=== PATIENT | male | born 1960 | race Caucasian/White ===

== ENCOUNTER 2020-09-23 09:14 | Emergency (ER) | payer BC, SELFPAY ==
--- NOTE | ~2020-09-23 | CT_ITS ---
EXAMINATION: CT abdomen pelvis w con EXAM DATE: 09/23/2020 11:44 INDICATION: Abdominal pain. Diverticulitis. TECHNIQUE: Spiral CT of the abdomen and pelvis was performed following intravenous injection of 100 m L Omnipaque 350. Axial, coronal and sagittal images of the abdomen and pelvis were reviewed. The do se-length product (DLP) for this examination was 624.41 mGy-cm. The exposure was tailored according to patient size (auto mA exposure control), and iterative reconstruction (ASIR) was used as additiona l dose reduction technique. Comparison is made to prior examination from 11/02/2017. FINDINGS: There is mild colonic diverticulosis. There is moderate amount of inflammation along the de scending/sigmoid colonic junction, with a 2 cm adjacent pocket of fluid which appears contained but w ithout organized wall (could be reactive rather than abscess). This is just deep to the inguinal adrienne l, with a small fat-containing inguinal hernia and inflammation extending into the canal. Portion of fat extending into inguinal canal appears circumscribed. Differential diagnosis includes torsed or he rniated epiploic appendagitis (into the inguinal canal), acute diverticulitis. The liver, spleen, adrenal glands and pancreas are unremarkable. Gallbladder is unremarkable. No bi liary obstruction. Portal and splenic veins are patent. Kidneys enhance symmetrically. There is no hydronephrosis. Prostate measures 5.5 cm transverse dimension, moderately enlarged. The bladder i s unremarkable. There is no retroperitoneal or pelvic lymphadenopathy. Moderate-sized umbilical fa t-containing hernia. The appendix is normal. The stomach and small bowel are unremarkable. There is expected amount of c olonic stool. No free intraperitoneal gas. The heart is normal in size. There are no pericardial or pleural effusions. The lung bases are unremarkable. Left femoral head bone island. IMPRESSION: 1. Inflammation along the descending/sigmoid colon with small pocket of fluid, small inguinal hernia containing circumscribed fat, inflammation. Consider herniated/torsed epiploic appendagitis, acute di verticulitis. Fluid pocket could be reactive but can't exclude early abscess. 2. Moderate-sized umbilical fat-containing hernia. 3. Moderate prostatomegaly. Reviewed, dictated and finalized at location [facility]. IMPRESSION: 1. Inflammation along the descending/sigmoid colon with small pocket of fluid, small inguinal hernia containing circumscribed fat, inflammation. Consider oleg iated/torsed epiploic appendagitis, acute diverticulitis. Fluid pocket could be reactive but can't exclude early abscess. 2. Moderate-sized umbilical fat-containing hernia. 3. Moderate prostatomegaly.
[2020-09-23 09:30] VITALS: BP 140/85; PULSE 99; RESP 18; TEMP 36.5; O2SAT 97
[2020-09-23 10:06] LABS: Basophils Absolute Auto 0.05 K/mm3 (0.00-0.10); Basophils Percent Auto 0.7 % (0.0-1.0); Eosinophils Percent Auto 2.6 % (1.0-6.0); Hematocrit 41.8 % (40.0-54.0); Hemoglobin 14.1 g/dL (14.0-18.0); Immature Granulocyte Absolute 0.05 K/mm3 (0.00-0.00); Immature Granulocyte Percent A 0.7 % (0.0-0.0); Lymphocytes Absolute Auto 1.81 K/mm3 (1.10-4.50); Lymphocytes Percent Auto 23.6 % (18.0-42.0); Mean Corpuscular HGB Conc 33.7 g/dL (32.0-36.0); Mean Corpuscular Hemoglobin 28.5 pg (27.0-31.0); Mean Corpuscular Volume 84.4 fL (78.0-102.0); Mean Platelet Volume 10.2 fl (8.7-11.0); Monocytes Absolute Auto 0.69 K/mm3 (0.10-0.90); Neutrophils Absolute Auto 4.9 K/mm3 (1.7-7.2); Neutrophils Percent Auto 63.4 % (50.0-70.0); Platelet Count Result 342 K/mm3 (150-420); Red Blood Count 4.95 M/mm3 (4.70-6.10); Red Cell Distribution Width 12.5 % (11.6-14.4); White Blood Count 7.7 K/mm3 (4.8-10.8)
[2020-09-23 10:07] LABS: Add Urine Microscopic? YES; Appearance Urine Clear (Clear); Bilirubin Urine Negative (Negative); Blood Urine Negative (Negative); Color Urine Yellow (Yellow); Glucose Urine UA 1+ (Negative); Ketones Urine Negative (Negative); Leukocyte Esterase Ur Negative LEU/UL (Negative); Nitrate Urine Negative (Negative); Protein Urine Negative (Negative); Specific Grav Ur 1.015 (1.010-1.020); Urobilinogen Urine 0.2 mg/dL (0.2-1.0); pH Urine 6.5 (5.0-8.0)
[2020-09-23 10:14] LABS: Bacteria Urine Trace /hpf; RBC Urine None seen /hpf (0-2); Squamous Epithelial Cell Urine Few /hpf (Few); WBC Urine None seen /hpf (0-3)
[2020-09-23 10:18] LABS: Alanine Aminotransferase 71 U/L (16-63); Albumin Level 3.4 g/dL (3.4-5.0); Alkaline Phosphatase 148 U/L (46-116); Anion Gap 9 mmol/L (8-16); Aspartate Amino Transferase 26 U/L (15-37); Bilirubin,Total 0.8 mg/dL (0.00-1.00); Blood Urea Nitrogen 14 mg/dL (7-18); Calcium 8.4 mg/dL (8.5-10.1); Carbon Dioxide 27 mmol/L (21-32); Chloride 101 mmol/L (98-108); Estimated CRCL calculation 58 ml/min; Estimated Glomerular Filt Rate 60; Glucose 265 mg/dL (70-99); Lipase 90 U/L (73-393); Osmolality Calculated 293 mOsm/kg (285-295); Potassium 3.9 mmol/L (3.5-5.1); Sodium 137 mmol/L (136-145); Total Protein 6.7 g/dL (6.4-8.2)
[2020-09-23] MEDS: KETOROLAC 30 MG/ML VIAL (*BKC) IV PUSH (10:21)
[2020-09-23 10:24] LABS: Lactic Acid Reflex 1.5 mmol/L (0.4-2.0)
[2020-09-23 13:06] VITALS: BP 127/65; PULSE 75; RESP 16; O2SAT 99
[2020-09-23] MEDS: metroNIDAZOLE 500 MG/ISO 100ML 500 MG/100 ML BAG 100 MG IVPB (14:08)
--- NOTE | 2020-09-23 14:17 | PC.NURSE ---
[facility] CONTACTED FOR TRANSFER.
--- NOTE | 2020-09-23 15:00 | ED.ABDPAIN ---
HPI - Abdominal Pain General Chief Complaint: Abdominal Pain Stated Complaint: abdomen pain Time Seen by Provider: 09/23/20 09:40 Source: patient and family Mode of arrival: ambulatory Limitations: no limitations History of Present Illness HPI narrative: Patient comes in with LLQ abdominal pain and pain over bladder, moderately severe, ongoing, sharp pain, ongoing for the past 4 days and ongoing. He has had no fever or chills. Pain has been worse with bending or walking. This has not improved at home with NSAIDS. MD elicited complaint: abdominal pain Pertinent past history: other (umbilical hernia) Onset (ago): day(s) Pain Consistency: constant Location: diffuse Severity: moderate Quality: stabbing Radiation: LUQ and LLQ Migration to: no migration Exacerbating factors: movement Relieving factors: rest Associated symptoms: denies other symptoms Treatments prior to arrival: NSAIDs Related Data Home Medications Medication Instructions Recorded Confirmed amlodipine 5 mg PO HS 09/23/20 09/23/20 atorvastatin 40 mg PO HS 09/23/20 09/23/20 Allergies Allergy/AdvReac Type Severity Reaction Status Date / Time No Known Allergies Allergy Verified 09/23/20 09:29 Review of Systems Constitutional: Constitutional: Reports no additional constitutional complaints Eyes: Eyes: Reports no additional eye complaints ENT: Reports system reviewed and no additional complaints, except as documented Cardiovascular: Cardiovascular: Reports no additional cardiovascular complaints Respiratory: Respiratory: Reports no additional respiratory complaints Gastrointestinal: Gastrointestinal: Reports abdominal pain and Reports nausea Genitourinary: Genitourinary: Reports no additional male genitourinary complaints Musculoskeletal: Musculoskeletal: Reports no additional musculoskeletal complaints Integumentary/Breasts: Skin/Breast: Reports system reviewed and no additional complaints, except as docu Neurologic: Reports system reviewed and no additional complaints, except as documented Psychiatric: Psychiatric: Reports no additional psychiatric complaints Endocrine: Endocrine: Reports no additional endocrine complaints Hematologic/Lymphatic: Hematologic/Lymphatic: Reports no additional hematologic/lymphatic complaints Allergic/Immunologic: Allergic/Immunologic: Reports no additional allergic/immunologic complaints [facility] Past Medical History Medical History Enlarged prostate HTN (hypertension), malignant Umbilical hernia Surgical History Surgical History H/O parathyroidectomy Family History Family History Father Diabetes mellitus Mother Cancer Other Family history of arthritis Family history of hepatitis Family history of liver disease Family history of primary malignant neoplasm of liver Social History Social History Social History: The patient was with his who is a durable power assistant attorney general for healthcare. The patient has 3 step children. He has no biological children of his own. The patient works for the [employer]. The patient is a full code. Patient's lifelong nonsmoker. Does not use any marijuana illicit drugs or alcohol Smoking status: Never smoker Alcohol intake: never Substance use: never Substance use type: does not use Gender identity (if verbalized by the patient): Male Spiritual care concerns: No Exam Const: General: no acute distress and alert Orientation/consciousness: patient oriented x3 HENMT: Head: normal to inspection Ears: external ears normal and TM's normal bilaterally General nose exam: Normal external nose present Mouth: Yes Normal oral and palatal mucosa present Throat: posterior oropharynx normal Eyes: Conjunctivae: conjunctivae normal Nec
--- NOTE | 2020-09-23 15:23 | PC.NURSE ---
awaiting surgeon from [place] to call back for consult. pt resting comfortably at this time, spouse at bedside.
[2020-09-23 15:43] VITALS: BP 132/90; PULSE 77; RESP 16; O2SAT 99
--- NOTE | 2020-09-23 16:18 | PC.NURSE ---
pt to be transferred to [facility] room 314 via ambulance. Report to Nany CHUA at [place].
== END 2020-09-23 16:40 | disposition short-term general hospital (02) ==
LOC: CHSED 09:17
PROVIDERS: Emergency Provider Emergency Medicine; PCP Family Medicine Adolescent Medicine
DX: K57.92 Diverticulitis of intestine, part unspecified, without perforation or abscess without bleeding (principal)
CPT/HCPCS: 36415; 74177; 80053; 81001; 83605; 83690; 85025; 87040; 96365; 96367; 96375; 99285; J1885; J2543; Q9967

== ENCOUNTER 2020-09-23 18:41 | Inpatient (IN) | payer BC, SELFPAY ==
--- NOTE | 2020-09-23 17:25 | PC.NURSE ---
This patient, Waqar Hernandez, was admitted to [facility] Surg Room 314-01. Patient/family oriented to hospital policies and general routines including ID bracelet, bed and alarms, visiting hours, pain management, procedures, bathroom and other care routines, personal items, smoking policy, room service/diet, and visiting hours. Information on how to activate the Rapid Response Team has been discussed. Patient/Family are encouraged to report perceived risks to care and to ask questions if they do not understand what they are told or what they should do.
[2020-09-23 17:29] VITALS: BMI 29.2
[2020-09-23 17:30] VITALS: BP 134/81; PULSE 79; RESP 18; TEMP 36.6; O2SAT 98
--- NOTE | 2020-09-23 18:41 | PM.IMHP ---
H&P: HPI History of Present Illness Date/Time: 09/23/20 18:41 this is a 60-year-old male patient with the only medical problems of hyperlipidemia and hypertension. He is not had any prior history of diverticulosis. The patient stated that he felt a discomfort in his lower abdomen approximately 3 days ago. He has been lifting weights in his basement and thought that maybe he pulled a muscle. The patient does have a umbilical hernia which he states has been there for about the last 3 years. Is been soft and has not had any problems with the umbilical hernia in the past. The patient stated that he is having left lower quadrant discomfort more so with walking and bending over. The patient was not able to go to [facility] today because of the discomfort. He denied any nausea vomiting or diarrhea. He denies having any bowel issues at this time. Patient stated he had problems with constipation the past but not recently. He has had no fever or chills. He did try some NSAIDs at home without any relief. The patient went to [facility] in saw Dr. gonzalez in the ER. Was read as. 1. Inflammation along the descending/sigmoid colon with small pocket of fluid, small inguinal hernia containing circumscribed fat, inflammation. Consider herniated/torsed epiploic appendagitis, acute diverticulitis. Fluid pocket could be reactive but can't exclude early abscess. 2. Moderate-sized umbilical fat-containing hernia. 3. Moderate prostatomegaly. The patient was started on Zosyn and Flagyl. The patient was noted to have an umbilical hernia which was not reducible. Patient has left lower quadrant tenderness. The patient is being admitted to inpatient services on the date of service of 09/23/2020. Chief Complaint: Abdominal pain Review of Systems Review of Systems: All systems reviewed & are unremarkable except as noted in HPI and below Constitutional: Constitutional: Reports as per HPI and Reports no additional constitutional complaints Eyes: Eyes: Reports as per HPI and Reports no additional eye complaints ENT: Reports system reviewed and no additional complaints, except as documented and Reports Normal hearing present Cardiovascular: Cardiovascular: Reports no additional cardiovascular complaints Respiratory: Respiratory: Reports no additional respiratory complaints and Reports no additional respiratory complaints Gastrointestinal: Gastrointestinal: Reports as per HPI and Reports no additional gastrointestinal complaints Musculoskeletal: Musculoskeletal: Reports no additional musculoskeletal complaints Integumentary/Breasts: Skin/Breast: Reports system reviewed and no additional complaints, except as docu and Reports as per HPI Neurologic: Reports system reviewed and no additional complaints, except as documented, Reports as per HPI and Reports Normal hearing present Psychiatric: Psychiatric: Reports no additional psychiatric complaints and Reports as per HPI Endocrine: Endocrine: Reports no additional endocrine complaints Hematologic/Lymphatic: Hematologic/Lymphatic: Reports no additional hematologic/lymphatic complaints Allergic/Immunologic: Allergic/Immunologic: Reports no additional allergic/immunologic complaints PMF[facility] Past Medical History Medical History (Updated 09/23/20 @ 19:17 by Zainab Brito NP) Enlarged prostate HTN (hypertension), malignant Umbilical hernia Surgical History Surgical History (Updated 09/23/20 @ 19:02 by Zainab Brito NP) H/O parathyroidectomy Family History Family History (Updated 09/23/20 @ 19:03 by Zainab Brito NP) Father Diabetes mellitus Mother Cancer Other Family history of arthritis Family history of hepatitis Family history of liver disease Family history of primary malignant neoplasm of liver Social History Social History (Updated 09/23/20 @ 19:03 by Zainab Brito NP) Social History: The patient was with his who is a durable power senior software qa engineer for healthcare. The [employer]
[2020-09-23 20:00] VITALS: BP 129/79; PULSE 74; RESP 20; TEMP 36.3; O2SAT 99
[2020-09-23] MEDS: DEXTROSE 5%/0.45% SOD CHL 1,000 ML 100 ML IV CONT (20:19)
[2020-09-23 20:24] LABS: Estimated CRCL calculation 64 ml/min; Estimated Glomerular Filt Rate > 60
[2020-09-23 20:25] LABS: Lactic Acid Reflex 1.4 mmol/L (0.7-2.1); Magnesium 1.9 mg/dL (1.6-2.3)
[2020-09-23] MEDS: amLODIPine BESYLATE 5 MG TABLET PO (20:29)
[2020-09-23] MEDS: ATORVASTATIN 40 MG TABLET PO (20:29)
[2020-09-24] VITALS: BP 130/72; PULSE 70; RESP 18; TEMP 36.7; O2SAT 97
[2020-09-24 04:00] VITALS: BP 136/61; PULSE 66; RESP 18; TEMP 36.6; O2SAT 97
[2020-09-24 06:27] LABS: Basophils Absolute Auto 0.1 K/mm3 (0.0-0.1); Basophils Percent Auto 0.9 % (0.2-1.2); Eosinophils Absolute Auto 0.3 K/mm3 (0-0.3); Eosinophils Percent Auto 4.3 % (0-4.4); Hematocrit 40.7 % (42.0-52.0); Hemoglobin 13.8 g/dL (14.0-18.0); Immature Granulocyte Absolute 0.04 K/mm3 (0.00-0.031); Immature Granulocyte Percent A 0.5 % (0-0.5); Lymphocytes Absolute Auto 1.94 K/mm3 (0.9-3.2); Lymphocytes Percent Auto 25.4 % (18.3-44.2); Mean Corpuscular HGB Conc 33.9 g/dl (32-36); Mean Corpuscular Volume 82.7 fl (80-100); Mean Platelet Volume 10.2 fl (7.4-10.4); Monocytes Absolute Auto 0.9 K/mm3 (0.1-0.6); Monocytes Percent Auto 12.2 % (2.6-8.5); Neutrophils Absolute Auto 4.3 K/mm3 (1.3-6.7); Neutrophils Percent Auto 56.7 % (45.5-73.1); Platelet Count Result 333 k/mm3 (150-375); Red Blood Count 4.92 M/mm3 (4.6-6.20); Red Cell Distribution Width 12.5 % (11.5-14.5); White Blood Count 7.6 K/mm3 (4.5-10.0)
[2020-09-24 07:59] VITALS: BP 134/81; PULSE 79; RESP 16; TEMP 36.6; O2SAT 95
[2020-09-24] MEDS: DEXTROSE 5%/0.45% SOD CHL 1,000 ML 100 ML IV CONT ×2 (09:08→19:02)
--- NOTE | 2020-09-24 10:42 | PM.CNGS ---
Assessment and Plan Assessment and plan (1) Diverticulitis: Code(s): K57.92 - Diverticulitis of intestine, part unspecified, without perforation or abscess without bleeding Status: Acute Assessment and Plan: This is the reason for his admission. CT scan reviewed and discussed with the patient in detail. There is evidence of acute diverticulitis with a small, 2 cm pocket of fluid adjacent to this. No free intraperitoneal air. The patient is already showing signs of clinical improvement with IV antibiotics and his white blood cell count remains normal. We would recommend continuing with broad-spectrum IV antibiotics, bowel rest, analgesics as needed, and IV fluids. Would agree with clear liquid diet for now. No indication for surgical intervention at this time. I discussed with the patient the pathophysiology of this disease process and that typically this improves with antibiotics and conservative measures. This is his first episode of diverticulitis. If he continues to improve, he would ultimately be discharged with a course of oral antibiotics and educated on a low vs. high fiber diet. He will also need a colonoscopy in about 4-6 weeks once this acute process has resolved. (2) Umbilical hernia: Code(s): K42.9 - Umbilical hernia without obstruction or gangrene Status: Chronic Assessment and Plan: Umbilical hernia containing fat noted on CT scan. Not able to fully reduce on exam and slightly tender, but otherwise this is typically asymptomatic. This is a chronic issue and there is no indication for urgent repair. Discussed this with the patient and reasons to seek urgent medical attention. Could follow-up as an outpatient either with our service or at the [place] for elective repair as an outpatient. (3) Left inguinal hernia: Code(s): K40.90 - Unilateral inguinal hernia, without obstruction or gangrene, not specified as recurrent Status: Acute Assessment and Plan: Small left inguinal hernia containing fat. CT suggests epiploic appendagitis as a differential dx. Continue analgesics as needed and monitoring. Will continue to treat the acute diverticulitis as mentioned above. (4) HTN (hypertension), malignant: Code(s): I10 - Essential (primary) hypertension Status: Chronic (5) Enlarged prostate: Code(s): N40.0 - Benign prostatic hyperplasia without lower urinary tract symptoms Status: Chronic Assessment and Plan: Takes an OTC supplement. Reportedly has this followed at the [facility] per Hospitalist. Additional Plan I have discussed the patient's case and plan of care with Dr. Short. Thank you for allowing us to see the patient in consultation and we will continue to follow along with you. History of Present Illness Consult details Consult date: 09/24/20 Reason for consult: other (Acute diverticulitis with possible abscess) Requesting physician: Zainab Brito NP Narrative: This is a 60-year-old male with a history of hypertension and hyperlipidemia, who presented to [facility] yesterday with complaints of lower abdominal pain. He reports first noticing very mild lower abdominal pain 5 days ago. He initially thought this was related to a muscle strain after lifting weights. His abdominal pain remained mild for a few days, but then progressively worsened over the weekend. He was eating and moving his bowels normally without complaints of nausea, vomiting, or diarrhea. He denies any blood noted in his stools. The abdominal pain became more severe yesterday and was constant, therefore he presented to the [place] ER for evaluation. CT scan of the abdomen and pelvis showed inflammation of the descending and sigmoid colon with a small 2 cm pocket of fluid, a small inguinal hernia containing circumscribed fat with inflammation, a moderate sized umbilical fat containing hernia, and moderate prostatomegaly. Labs were unremarkable with a normal white blood cell count. Our serv
[2020-09-24 12:00] VITALS: BP 127/77; PULSE 80; RESP 16; TEMP 36.9; O2SAT 98
--- NOTE | 2020-09-24 14:21 | PM.IMPN ---
Progress Note: A&P Assessment and Plan (1) Diverticulitis: Code(s): K57.92 - Diverticulitis of intestine, part unspecified, without perforation or abscess without bleeding Status: Acute Assessment and Plan: Continue with Zosyn. Continue with IV fluids and anti nausea medicine. Continue with pain medication general surgery consulted. CT abdomen with: 1. Inflammation along the descending/sigmoid colon with small pocket of fluid, small inguinal hernia containing circumscribed fat, inflammation. Consider herniated/torsed epiploic appendagitis, acute diverticulitis. Fluid pocket could be reactive but can't exclude early abscess. 2. Moderate-sized umbilical fat-containing hernia. 3. Moderate prostatomegaly. needs to see GI or colorectal for colonscopy in 4-6 weeks of resolution of his diverticulitis. (2) Umbilical hernia: Code(s): K42.9 - Umbilical hernia without obstruction or gangrene Status: Chronic Assessment and Plan: with fat in the hernia sac. not able to reduce and slightly tender, which he states has been that way. no indication for ugent repair per surgery. (3) HTN (hypertension), malignant: Code(s): I10 - Essential (primary) hypertension Status: Chronic Assessment and Plan: Continue with patient's amiodarone. (4) Enlarged prostate: Code(s): N40.0 - Benign prostatic hyperplasia without lower urinary tract symptoms Status: Chronic Assessment and Plan: Patient takes [facility] at home. The patient typically goes to the [place] it is going to address this issue with his doctor at the [place]. (5) Hyperlipidemia: Code(s): E78.5 - Hyperlipidemia, unspecified Status: Acute Assessment and Plan: Continue with atorvastatin. Subjective Date/time seen: 09/24/20 14:21 Interval history: patient feelig better. abdomen is less sore. tried clears and tolerating it well. no fever,chlls. no sob, chest pain. have normal bowel movements Review of Systems Review of Systems: All systems reviewed & are unremarkable except as noted in HPI and below Constitutional: Constitutional: Reports as per HPI and Reports no additional constitutional complaints Eyes: Eyes: Reports as per HPI and Reports no additional eye complaints ENT: Reports system reviewed and no additional complaints, except as documented and Reports Normal hearing present Cardiovascular: Cardiovascular: Reports no additional cardiovascular complaints Respiratory: Respiratory: Reports no additional respiratory complaints and Reports no additional respiratory complaints Gastrointestinal: Gastrointestinal: Reports as per HPI and Reports no additional gastrointestinal complaints Musculoskeletal: Musculoskeletal: Reports no additional musculoskeletal complaints Integumentary/Breasts: Skin/Breast: Reports system reviewed and no additional complaints, except as docu and Reports as per HPI Neurologic: Reports system reviewed and no additional complaints, except as documented, Reports as per HPI and Reports Normal hearing present Psychiatric: Psychiatric: Reports no additional psychiatric complaints and Reports as per HPI Endocrine: Endocrine: Reports no additional endocrine complaints Hematologic/Lymphatic: Hematologic/Lymphatic: Reports no additional hematologic/lymphatic complaints Allergic/Immunologic: Allergic/Immunologic: Reports no additional allergic/immunologic complaints Exam Const: General: cooperative, healthy appearing, comfortable, no acute distress, well developed, alert, awake and Physically active Nutritional Appearance: average body habitus and well nourished Orientation/consciousness: oriented to person, oriented to place, oriented to time and patient oriented x3 Limitations: no limitations HENMT: Head: normal to inspection, No palpable skull fracture present, normocephalic and atraumatic Ears: hearing grossly normal bilater
[2020-09-24 14:54] LABS: Anion Gap 9 mmol/L (8-16); Blood Urea Nitrogen 10 mg/dL (9-20); Carbon Dioxide 29 mmol/L (22-30); Chloride 102 mmol/L (98-107); Estimated CRCL calculation 59 ml/min; Estimated Glomerular Filt Rate > 60; Glucose 171 mg/dL (75-110); Potassium 3.9 mmol/L (3.4-5.0); Sodium 140 mmol/L (137-145)
[2020-09-24 16:00] VITALS: BP 128/80; PULSE 75; RESP 14; TEMP 36.2; O2SAT 99
[2020-09-24 20:00] VITALS: BP 125/81; PULSE 65; RESP 18; TEMP 36.6; O2SAT 100
[2020-09-24] MEDS: amLODIPine BESYLATE 5 MG TABLET PO (21:55)
[2020-09-24] MEDS: ATORVASTATIN 40 MG TABLET PO (21:55)
[2020-09-25] VITALS: BP 101/58; PULSE 72; RESP 18; TEMP 36.6; O2SAT 99
[2020-09-25 04:00] VITALS: BP 116/62; PULSE 72; RESP 18; TEMP 36.1; O2SAT 97
[2020-09-25] MEDS: DEXTROSE 5%/0.45% SOD CHL 1,000 ML 100 ML IV CONT (05:11)
[2020-09-25 06:06] LABS: Basophils Absolute Auto 0.1 K/mm3 (0.0-0.1); Basophils Percent Auto 0.9 % (0.2-1.2); Eosinophils Absolute Auto 0.3 K/mm3 (0-0.3); Eosinophils Percent Auto 4.2 % (0-4.4); Hematocrit 42.5 % (42.0-52.0); Immature Granulocyte Absolute 0.04 K/mm3 (0.00-0.031); Immature Granulocyte Percent A 0.5 % (0-0.5); Lymphocytes Absolute Auto 1.95 K/mm3 (0.9-3.2); Lymphocytes Percent Auto 24.9 % (18.3-44.2); Mean Corpuscular HGB Conc 32.9 g/dl (32-36); Mean Corpuscular Hemoglobin 28.2 pg (26-34); Mean Corpuscular Volume 85.5 fl (80-100); Mean Platelet Volume 9.6 fl (7.4-10.4); Monocytes Absolute Auto 0.9 K/mm3 (0.1-0.6); Monocytes Percent Auto 10.8 % (2.6-8.5); Neutrophils Absolute Auto 4.6 K/mm3 (1.3-6.7); Neutrophils Percent Auto 58.7 % (45.5-73.1); Platelet Count Result 350 k/mm3 (150-375); Red Blood Count 4.97 M/mm3 (4.6-6.20); Red Cell Distribution Width 12.8 % (11.5-14.5); White Blood Count 7.8 K/mm3 (4.5-10.0)
[2020-09-25 06:19] LABS: Anion Gap 9 mmol/L (8-16); Blood Urea Nitrogen 8 mg/dL (9-20); Calcium 8.7 mg/dL (8.4-10.2); Carbon Dioxide 28 mmol/L (22-30); Chloride 104 mmol/L (98-107); Estimated CRCL calculation 59 ml/min; Estimated Glomerular Filt Rate > 60; Glucose 150 mg/dL (75-110); Potassium 3.8 mmol/L (3.4-5.0); Sodium 141 mmol/L (137-145)
[2020-09-25 08:00] VITALS: BP 133/87; PULSE 76; RESP 18; TEMP 36.5; O2SAT 98
[2020-09-25 08:11] LABS: Magnesium 1.9 mg/dL (1.6-2.3)
[2020-09-25 12:00] VITALS: BP 128/88; PULSE 76; RESP 18; TEMP 36.6; O2SAT 99
--- NOTE | 2020-09-25 12:24 | PM.PNGS ---
Progress Note: A&P Assessment and Plan (1) Diverticulitis: Code(s): K57.92 - Diverticulitis of intestine, part unspecified, without perforation or abscess without bleeding Status: Acute Assessment and Plan: White blood count remains normal and patient is afebrile. Began advancing diet to a low fiber diet. Okay to discharge home from surgical standpoint if tolerating low fiber diet. (2) Incarcerated ventral hernia: Code(s): K43.6 - Other and unspecified ventral hernia with obstruction, without gangrene Status: Acute Assessment and Plan: Symptomatic ventral periumbilical hernia incarcerated with fat. Discussed with patient we recommend eventual repair, but would like him to recover from this episode of diverticulitis possibly get his colonoscopy 1st (3) Left inguinal hernia: Code(s): K40.90 - Unilateral inguinal hernia, without obstruction or gangrene, not specified as recurrent Status: Acute Assessment and Plan: Symptomatic left inguinal hernia that is tender on exam but was able to be reduced. Eventual repair of this along with ventral hernia as an outpatient. Subjective Subjective Date/Time Seen: 09/25/20 12:24 Interval history: Still having some tenderness but much of this is located around the periumbilical hernia and a left inguinal hernia. Bowels moving, and tolerating diet. No fevers. Exam GI: Other: Incarcerated periumbilical ventral hernia containing fat. Mild left lower quadrant tenderness, no rebound or guarding. : Scrotum: inguinal hernia on the left (Reducible left inguinal hernia with mild tenderness to palpation) Objective Data Vital Signs Vital Signs: Vital Signs - 24 hr 09/24/20 16:00 09/24/20 20:00 09/25/20 00:00 Temperature 36.2 C L 36.6 C 36.6 C Pulse Rate 75 65 72 Respiratory Rate 14 18 18 Blood Pressure 128/80 125/81 101/58 L Pulse Oximetry 99 100 99 09/25/20 04:00 09/25/20 08:00 Temperature 36.1 C L 36.5 C Pulse Rate 72 76 Respiratory Rate 18 18 Blood Pressure 116/62 133/87 Pulse Oximetry 97 98 Intake/Output Intake/Output: Intake & Output 09/22/20 09/23/20 09/24/20 09/25/20 23:59 23:59 23:59 23:59 Intake Total 3890 1760 Output Total 2250 600 Balance 1640 1160 Meds/Results Medications: Active Medications Generic Name Dose Route Start Last Admin Trade Name Freq PRN Reason Stop Dose Admin Acetaminophen 650 mg 09/23/20 18:41 Acetaminophen 325 Mg Tablet PO Q4H PRN Mild Pain (1-3) or Fever Hydrocodone Bitart/Acetaminophen 1 tab 09/23/20 19:15 Hydrocodone/Acetaminophen (*Crx) 5-325 Mg Tablet PO Q4H PRN Pain Rated 4-6 Amlodipine Besylate 5 mg 09/23/20 21:00 09/24/20 21:55 Amlodipine Besylate 5 Mg Tablet PO 5 mg HS SRAVAN Administration Atorvastatin Calcium 40 mg 09/23/20 21:00 09/24/20 21:55 Atorvastatin 40 Mg Tablet PO 40 mg HS SRAVAN Administration Piperacillin/Tazobactam/Dextrose 3.375 gm in 50 mls @ 100 mls/hr 09/24/20 01:00 09/25/20 06:40 Zosyn 3.375 Gm/D5w 50ml Pm IVPB 100 mls/hr Q6H SRAVAN Administration Ondansetron HCl 4 mg 09/23/20 18:41 Ondansetron Inj 4 Mg/2 Ml Vial IV PUSH Q6H PRN Nausea And Vomiting Labs Labs: Laboratory Results - last 24 hr 09/24/20 09/25/20 09/25/20 14:37 05:41 05:43 WBC 7.8 RBC 4.97 Hgb 14.0 Hct 42.5 MCV 85.5 MCH 28.2 MCHC 32.9 RDW 12.8 Plt Count 350 MPV 9.6 Immature Gran % (Auto) 0.5 Neut % (Auto) 58.7 Lymph % (Auto) 24.9 [place] % (Auto) 10.8 H Eos % (Auto) 4.2 Baso % (Auto) 0.9 Lymph # (Auto) 1.95 [place] # (Auto) 0.9 H Eos # (Auto) 0.3 Baso # (Auto) 0.1 Abs Immat Gran (auto) 0.04 H Absolute Neuts (auto) 4.6 Absolute Nucleated RBC 0.0 Nucleated RBC % 0.0 Sodium 140 Potassium 3.9 Chloride 102 Carbon Dioxide 29 Anion Gap 9 BUN 10 Creatinine 1.20 Estim Creat Clear Calc 59 Estimat
[2020-09-25] MEDS: ACETAMINOPHEN 325 MG TABLET 650 MG PO (12:25)
--- NOTE | 2020-09-25 12:55 | WPDGICN ---
Assessment and Plan Assessment and plan (1) Diverticulitis: Code(s): K57.92 - Diverticulitis of intestine, part unspecified, without perforation or abscess without bleeding Status: Acute Assessment and Plan: Patient has diverticulitis this is confirmed by CT scan findings. Currently improving clinically. Plan is to start with clear to full liquid diet and advance diet as tolerated. Antibiotics have been be started already in appear to be improving. After discharge would recommend at least 1 week of continue broad-spectrum antibiotic coverage. Colonoscopy should be performed would anticipate doing this approximately 1 month after discharge. (2) Incarcerated ventral hernia: Code(s): K43.6 - Other and unspecified ventral hernia with obstruction, without gangrene Status: Acute Assessment and Plan: Because of incarcerated umbilical hernia and reducible left inguinal hernia surgery has been consulted. Surgical therapy for this is anticipated per their schedule. (3) Left inguinal hernia: Code(s): K40.90 - Unilateral inguinal hernia, without obstruction or gangrene, not specified as recurrent Status: Acute GI Consult Note Consult date/time: 09/25/20 12:55 HPI: Waqar Hernandez is a 60 year old male Seen in evaluation at the request of the hospitalist service. Patient reports over last 3 days has had increasing abdominal pain across the low abdomen bilaterally. Because of increase intensity of this pain he presented to the emergency room. A CT scan suggested sigmoid diverticulitis. There is a fluid collection raising the question of possible early abscess. Patient has never had pain to this degree before. He denies any bleeding. He has continued to pass gas and have bowel movements throughout this time period. patient's family history is noncontributory. He has never had a colonoscopy previously. Review of Systems Review of Systems: All systems reviewed & are unremarkable except as noted in HPI and below [facility] Past Medical History Medical History (Updated 09/25/20 @ 12:26 by Zak Short DO) Enlarged prostate History of flexible sigmoidoscopy flexible sigmoidoscopy for constipation, reportedly normal HTN (hypertension), malignant Surgical History Surgical History H/O parathyroidectomy Family History Family History Father Diabetes mellitus Mother Cancer Other Family history of arthritis Family history of hepatitis Family history of liver disease Family history of primary malignant neoplasm of liver Social History Social History Social History: The patient was with his who is a durable power sports attorney for healthcare. The patient has 3 step children. He has no biological children of his own. The patient works for the [employer]. The patient is a full code. Patient's lifelong nonsmoker. Does not use any marijuana illicit drugs or alcohol Smoking status: Never smoker Alcohol intake: never Substance use: never Substance use type: does not use Gender identity (if verbalized by the patient): Male Spiritual care concerns: No Meds Home Medications and Allergies Home Medications Medication Instructions Recorded Confirmed Type amlodipine 5 mg PO HS 09/23/20 09/23/20 History atorvastatin 40 mg PO HS 09/23/20 09/23/20 History Allergies Allergy/AdvReac Type Severity Reaction Status Date / Time No Known Allergies Allergy Verified 09/23/20 09:29 Vital Signs Vital Signs - 24 hr 09/24/20 16:00 09/24/20 20:00 09/25/20 00:00 Temperature 97.2 F L 97.8 F 97.9 F Pulse Rate 75 65 72 Respiratory Rate 14 18 18 Blood Pressure 128/80 125/81 101/58 L Pulse Oximetry 99 100 99 09/25/20 04:00 09/25/20 08:00 09/25/20 12:00 Tempera
--- NOTE | 2020-09-25 14:10 | PM.IMPN ---
Progress Note: A&P Assessment and Plan (1) Diverticulitis: Code(s): K57.92 - Diverticulitis of intestine, part unspecified, without perforation or abscess without bleeding Status: Acute Assessment and Plan: Continue with Zosyn. Continue with IV fluids and anti nausea medicine. Continue with pain medication general surgery consulted. CT abdomen with: 1. Inflammation along the descending/sigmoid colon with small pocket of fluid, small inguinal hernia containing circumscribed fat, inflammation. Consider herniated/torsed epiploic appendagitis, acute diverticulitis. Fluid pocket could be reactive but can't exclude early abscess. 2. Moderate-sized umbilical fat-containing hernia. 3. Moderate prostatomegaly. needs to see GI or colorectal for colonscopy in 4-6 weeks of resolution of his diverticulitis. patient feelig better. abdomen is less sore. tried clears and tolerating it well. no fever,chlls. no sob, chest pain. have normal bowel movements 09/25/20 14:10 Patient was seen by GI and agreed with the plan to continue IV antibiotic upon discharge patient will need oral antibiotics, patient also has umbilical and ventral hernia symptomatic but clinically stable seen by surgery service recommending conservative management currently down the road patient will need surgical evaluation, patient remains clinically stable will continue present management discharge the patient tomorrow (2) Umbilical hernia: Code(s): K42.9 - Umbilical hernia without obstruction or gangrene Status: Inactive Assessment and Plan: with fat in the hernia sac. not able to reduce and slightly tender, which he states has been that way. no indication for ugent repair per surgery. (3) HTN (hypertension), malignant: Code(s): I10 - Essential (primary) hypertension Status: Chronic Assessment and Plan: Continue with patient's amiodarone. (4) Enlarged prostate: Code(s): N40.0 - Benign prostatic hyperplasia without lower urinary tract symptoms Status: Chronic Assessment and Plan: Patient takes saw palmetto at home. The patient typically goes to the [place] it is going to address this issue with his doctor at the [place]. (5) Hyperlipidemia: Code(s): E78.5 - Hyperlipidemia, unspecified Status: Acute Assessment and Plan: Continue with atorvastatin. Subjective Date/time seen: 09/25/20 14:10 Interval history: patient feelig better. abdomen is less sore. tried clears and tolerating it well. no fever,chlls. no sob, chest pain. have normal bowel movements Patient was seen by GI and agreed with the plan to continue IV antibiotic upon discharge patient will need oral antibiotics, patient also has umbilical and ventral hernia symptomatic but clinically stable seen by surgery service recommending conservative management currently down the road patient will need surgical evaluation, patient remains clinically stable will continue present management discharge the patient tomorrow Review of Systems Review of Systems: All systems reviewed & are unremarkable except as noted in HPI and below Exam Narrative: Exam Narrative: Patient is comfortable, NAD HEENT: eyes are clear and none icteric LUNGS:CTA HEART: RR S1S2 ABD: BS+, diffusely tender Lower extremities: no edema SKIN: nonjaundiced Neuro: grossly intact. Objective Data Vital Signs Vital Signs: Vital Signs - 24 hr 09/24/20 16:00 09/24/20 20:00 09/25/20 00:00 Temperature 97.2 F L 97.8 F 97.9 F Pulse Rate 75 65 72 Respiratory Rate 14 18 18 Blood Pressure 128/80 125/81 101/58 L Pulse Oximetry 99 100 99 09/25/20 04:00 09/25/20 08:00 09/25/20 12:00 Temperature 97.0 F L 97.7 F 97.9 F Pulse Rate 72 76 76 Respiratory Rate 18 18 18 Blood Pressure 116/62 133/87 128/88 Pulse Oximetry 97 98 99 Intake/Output Intake/Output: Intake & Output 09/22/20 09/23/20 09/24/20 09/25/20 23:5
[2020-09-25 16:00] VITALS: BP 130/86; PULSE 78; RESP 18; TEMP 36.6; O2SAT 99
[2020-09-25] MEDS: ATORVASTATIN 40 MG TABLET PO (20:08)
[2020-09-25] MEDS: amLODIPine BESYLATE 5 MG TABLET PO (20:08)
[2020-09-25 22:00] VITALS: BP 126/72; PULSE 75; RESP 18; TEMP 36.1; O2SAT 98
[2020-09-26 06:00] VITALS: BP 121/75; PULSE 64; RESP 18; TEMP 36.1; O2SAT 96
[2020-09-26 06:15] LABS: Hemoglobin 14.2 g/dL (14.0-18.0); Mean Corpuscular HGB Conc 33.8 g/dl (32-36); Mean Corpuscular Hemoglobin 28.3 pg (26-34); Mean Corpuscular Volume 83.7 fl (80-100); Mean Platelet Volume 9.8 fl (7.4-10.4); Platelet Count Result 366 k/mm3 (150-375); Red Blood Count 5.02 M/mm3 (4.6-6.20); Red Cell Distribution Width 12.4 % (11.5-14.5); White Blood Count 7.6 K/mm3 (4.5-10.0)
[2020-09-26 06:19] LABS: Anion Gap 7 mmol/L (8-16); Blood Urea Nitrogen 12 mg/dL (9-20); Carbon Dioxide 29 mmol/L (22-30); Chloride 104 mmol/L (98-107); Estimated CRCL calculation 59 ml/min; Estimated Glomerular Filt Rate > 60; Glucose 116 mg/dL (75-110); Potassium 3.8 mmol/L (3.4-5.0); Sodium 140 mmol/L (137-145)
[2020-09-26 08:00] VITALS: BP 122/90; PULSE 80; RESP 20; TEMP 36.7; O2SAT 99
--- NOTE | 2020-09-26 08:02 | WPDGIPROGNO ---
Progress Note: A&P Assessment and Plan (1) Diverticulitis: Code(s): K57.92 - Diverticulitis of intestine, part unspecified, without perforation or abscess without bleeding Status: Acute Assessment and Plan: Diverticulitis improving with antibiotics. Recommend the patient remain on oral antibiotics 1 week after discharge. Anticipate follow-up colonoscopy in 1 month through my office. Patient to call Dr. Delgado's office to arrange outpatient colonoscopy. (2) Left inguinal hernia: Code(s): K40.90 - Unilateral inguinal hernia, without obstruction or gangrene, not specified as recurrent Status: Acute (3) Incarcerated ventral hernia: Code(s): K43.6 - Other and unspecified ventral hernia with obstruction, without gangrene Status: Acute Assessment and Plan: Surgery to follow up for hernias. Anticipate surgical therapy at a later date. Subjective Date/time seen: 09/26/20 08:02 Patient feels much better today. Only modest discomfort remains. Passing bowel movements without difficulty. Review of Systems Review of Systems: All systems reviewed & are unremarkable except as noted in HPI and below Exam Narrative: Exam Narrative: Physical exam reveals patient be alert comfortable at rest. HEENT exam is unremarkable. Patient is anicteric. Lungs are clear to auscultation and percussion. Heart is without murmur or extra sounds. Abdominal exam bowel sounds are present soft nontender with no organomegaly. Patient has incarcerated umbilical hernia. Left inguinal hernia has been reduced. Rectal exam is deferred today. Objective Data Vital Signs Vital Signs: Vital Signs - 24 hr 09/25/20 12:00 09/25/20 16:00 09/25/20 22:00 Temperature 97.9 F 97.9 F 97.0 F L Pulse Rate 76 78 75 Respiratory Rate 18 18 18 Blood Pressure 128/88 130/86 126/72 Pulse Oximetry 99 99 98 09/26/20 06:00 Temperature 97.0 F L Pulse Rate 64 Respiratory Rate 18 Blood Pressure 121/75 Pulse Oximetry 96 Intake/Output Intake/Output: Intake & Output 09/23/20 09/24/20 09/25/20 09/26/20 23:59 23:59 23:59 23:59 Intake Total 3890 4190 300 Output Total 2250 2250 Balance 1640 1940 300 Meds/Results Medications: Active Medications Generic Name Dose Route Start Last Admin Trade Name Freq PRN Reason Stop Dose Admin Acetaminophen 650 mg 09/23/20 18:41 09/25/20 12:25 Acetaminophen 325 Mg Tablet PO 650 mg Q4H PRN Administration Mild Pain (1-3) or Fever Hydrocodone Bitart/Acetaminophen 1 tab 09/23/20 19:15 Hydrocodone/Acetaminophen (*Crx) 5-325 Mg Tablet PO Q4H PRN Pain Rated 4-6 Amlodipine Besylate 5 mg 09/23/20 21:00 09/25/20 20:08 Amlodipine Besylate 5 Mg Tablet PO 5 mg HS SRAVAN Administration Atorvastatin Calcium 40 mg 09/23/20 21:00 09/25/20 20:08 Atorvastatin 40 Mg Tablet PO 40 mg HS SRAVAN Administration Piperacillin/Tazobactam/Dextrose 3.375 gm in 50 mls @ 100 mls/hr 09/24/20 01:00 09/26/20 06:43 Zosyn 3.375 Gm/D5w 50ml Pm IVPB 100 mls/hr Q6H SRAVAN Administration Ondansetron HCl 4 mg 09/23/20 18:41 Ondansetron Inj 4 Mg/2 Ml Vial IV PUSH Q6H PRN Nausea And Vomiting Labs Labs: Laboratory Results - last 24 hr 09/25/20 09/26/20 09/26/20 05:41 05:44 05:44 WBC 7.6 RBC 5.02 Hgb 14.2 Hct 42.0 MCV 83.7 MCH 28.3 MCHC 33.8 RDW 12.4 Plt Count 366 MPV 9.8 Sodium 140 Potassium 3.8 Chloride 104 Carbon Dioxide 29 Anion Gap 7 L BUN 12 Creatinine 1.20 Estim Creat Clear Calc 59 Estimated GFR > 60 Glucose 116 H Calcium 9.0 Magnesium 1.9
--- NOTE | 2020-09-26 09:38 | PM.DS ---
DS: Admitting Diagnosis Admitting Diagnosis Admitting Diagnosis: Abdominal pain DS: Discharge Diagnosis Discharge Diagnosis (1) Diverticulitis: Code(s): K57.92 - Diverticulitis of intestine, part unspecified, without perforation or abscess without bleeding Status: Acute Assessment and Plan: Continue with Zosyn. Continue with IV fluids and anti nausea medicine. Continue with pain medication general surgery consulted. CT abdomen with: 1. Inflammation along the descending/sigmoid colon with small pocket of fluid, small inguinal hernia containing circumscribed fat, inflammation. Consider herniated/torsed epiploic appendagitis, acute diverticulitis. Fluid pocket could be reactive but can't exclude early abscess. 2. Moderate-sized umbilical fat-containing hernia. 3. Moderate prostatomegaly. needs to see GI or colorectal for colonscopy in 4-6 weeks of resolution of his diverticulitis. patient feelig better. abdomen is less sore. tried clears and tolerating it well. no fever,chlls. no sob, chest pain. have normal bowel movements 09/25/20 14:10 Patient was seen by GI and agreed with the plan to continue IV antibiotic upon discharge patient will need oral antibiotics, patient also has umbilical and ventral hernia symptomatic but clinically stable seen by surgery service recommending conservative management currently down the road patient will need surgical evaluation, patient remains clinically stable will continue present management discharge the patient tomorrow (2) Umbilical hernia: Code(s): K42.9 - Umbilical hernia without obstruction or gangrene Status: Inactive Assessment and Plan: with fat in the hernia sac. not able to reduce and slightly tender, which he states has been that way. no indication for ugent repair per surgery. (3) HTN (hypertension), malignant: Code(s): I10 - Essential (primary) hypertension Status: Chronic Assessment and Plan: Continue with patient's amiodarone. (4) Enlarged prostate: Code(s): N40.0 - Benign prostatic hyperplasia without lower urinary tract symptoms Status: Chronic Assessment and Plan: Patient takes saw chris at home. The patient typically goes to the [place] it is going to address this issue with his doctor at the [place]. (5) Hyperlipidemia: Code(s): E78.5 - Hyperlipidemia, unspecified Status: Acute Assessment and Plan: Continue with atorvastatin. DS: Summary Hospital Course Reason for hospitalization: this is a 60-year-old male patient with the only medical problems of hyperlipidemia and hypertension. He is not had any prior history of diverticulosis. The patient stated that he felt a discomfort in his lower abdomen approximately 3 days ago. He has been lifting weights in his basement and thought that maybe he pulled a muscle. The patient does have a umbilical hernia which he states has been there for about the last 3 years. Is been soft and has not had any problems with the umbilical hernia in the past. The patient stated that he is having left lower quadrant discomfort more so with walking and bending over. The patient was not able to go to synagogue today because of the discomfort. He denied any nausea vomiting or diarrhea. He denies having any bowel issues at this time. Patient stated he had problems with constipation the past but not recently. He has had no fever or chills. He did try some NSAIDs at home without any relief. The patient went to [facility] in saw Dr. gonzalez in the ER. Was read as. 1. Inflammation along the descending/sigmoid colon with small pocket of fluid, small inguinal hernia containing circumscribed fat, inflammation. Consider herniated/torsed epiploic appendagitis, acute diverticulitis. Fluid pocket could be reactive but can't exclude early abscess. 2. Moderate-sized umbilical fat-containing hernia. 3. Moderate prostatomegaly. The patien
[2020-09-26 12:00] VITALS: BP 125/85; PULSE 82; RESP 20; TEMP 36.7; O2SAT 99
== END 2020-09-26 14:06 | disposition home or self-care (01) | DRG 392 ==
PROVIDERS: Family Medicine; Nurse Practitioner; Admitting Provider Hospitalist; PCP Family Medicine Adolescent Medicine; Visit Provider Internal Medicine
DX: K57.92 Diverticulitis of intestine, part unspecified, without perforation or abscess without bleeding (principal); K43.6 Other and unspecified ventral hernia with obstruction, without gangrene; K40.90 Unilateral inguinal hernia, without obstruction or gangrene, not specified as recurrent; I10 Essential (primary) hypertension; N40.0 Benign prostatic hyperplasia without lower urinary tract symptoms; E78.5 Hyperlipidemia, unspecified; Z79.899 Other long term (current) drug therapy
CPT/HCPCS: 36415; 80048; 82565; 83036; 83605; 83735; 85025; 85027; 87040; A9270; J2543

== ENCOUNTER 2020-11-14 18:57 | Emergency (ER) | payer OTHER, BC, SELFPAY ==
--- NOTE | ~2020-11-14 | XR_ITS ---
EXAMINATION: XR hand RT min 3V INDICATION: Right hand pain and swelling TECHNIQUE: Three views of the right hand are obtained. COMPARISON: None available FINDINGS: There is no fracture, dislocation, or subluxation. The bones, soft tissues, and joint space s are normal. IMPRESSION: 1. No acute osseous abnormality. Reviewed, dictated and finalized at location A.
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
[2020-11-14 19:00] VITALS: BP 150/95; PULSE 105; RESP 16; TEMP 36.9; O2SAT 97
--- NOTE | 2020-11-14 19:01 | ECG_ITS ---
Measurements Intervals [place] Rate: 107 P: 59 PA: 161 QRS: 21 QRSD: 85 T: 9 QT: 314 QTc: 419 Interpretive Statements SINUS TACHYCARDIA DELAYED PRECORDIAL R/S TRANSITION INFERIOR INFARCT, AGE INDETERMINATE BASELINE ARTIFACT- I, II, III, AVR, AVL, V4, V6 ABNORMAL ECG Electronically Signed On 11-14-2020 19:49:23 CDT by Gaurav Burk D.O.
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
[2020-11-14 19:32] LABS: Basophils Absolute Auto 0.07 K/mm3 (0.00-0.10); Basophils Percent Auto 0.8 % (0.0-1.0); Eosinophils Percent Auto 2.3 % (1.0-6.0); Hematocrit 43.3 % (40.0-54.0); Hemoglobin 14.9 g/dL (14.0-18.0); Immature Granulocyte Absolute 0.06 K/mm3 (0.00-0.00); Immature Granulocyte Percent A 0.7 % (0.0-0.0); Lymphocytes Absolute Auto 1.87 K/mm3 (1.10-4.50); Lymphocytes Percent Auto 21.8 % (18.0-42.0); Mean Corpuscular HGB Conc 34.4 g/dL (32.0-36.0); Mean Corpuscular Hemoglobin 28.4 pg (27.0-31.0); Mean Corpuscular Volume 82.6 fL (78.0-102.0); Mean Platelet Volume 9.7 fl (8.7-11.0); Monocytes Absolute Auto 0.77 K/mm3 (0.10-0.90); Neutrophils Absolute Auto 5.6 K/mm3 (1.7-7.2); Neutrophils Percent Auto 65.4 % (50.0-70.0); Platelet Count Result 372 K/mm3 (150-420); Red Blood Count 5.24 M/mm3 (4.70-6.10); Red Cell Distribution Width 12.1 % (11.6-14.4); White Blood Count 8.6 K/mm3 (4.8-10.8)
[2020-11-14 19:46] LABS: D Dimer 0.32 mg/L (0.19-0.50); Prothrombin Time 10.5 Seconds (9.50-12.10)
[2020-11-14 19:56] LABS: Alanine Aminotransferase 63 U/L (16-63); Alkaline Phosphatase 135 U/L (46-116); Anion Gap 15 mmol/L (8-16); Aspartate Amino Transferase 25 U/L (15-37); Bilirubin,Total 0.6 mg/dL (0.00-1.00); Blood Urea Nitrogen 15 mg/dL (7-18); Calcium 8.6 mg/dL (8.5-10.1); Carbon Dioxide 24 mmol/L (21-32); Chloride 101 mmol/L (98-108); Estimated Glomerular Filt Rate 51; Glucose 230 mg/dL (70-99); Lipase 97 U/L (73-393); NT Pro B Type Natriuretic Pept < 11 pg/mL (0-125); Osmolality Calculated 297 mOsm/kg (285-295); Potassium 3.6 mmol/L (3.5-5.1); Sodium 140 mmol/L (136-145); Total Protein 7.2 g/dL (6.4-8.2); Troponin I < 4.0 ng/L (0.00-60.4)
[2020-11-14] MEDS: MORPHINE SULFATE (*CRX) 4 MG/ML INJ IV PUSH (20:13)
[2020-11-14 21:17] VITALS: BP 126/88; PULSE 89; RESP 20; TEMP 36.6; O2SAT 97
== END 2020-11-14 21:19 | disposition home or self-care (01) ==
PROVIDERS: Emergency Provider Family Medicine; PCP Family Medicine Adolescent Medicine
DX: R73.9 Hyperglycemia, unspecified (principal); V89.2XXA Person injured in unspecified motor-vehicle accident, traffic, initial encounter
CPT/HCPCS: 36415; 71260; 73130; 74177; 80053; 83690; 83880; 84484; 85025; 85380; 85610; 93005; 96372; 99283; 99284; J2270; Q9967

== ENCOUNTER 2020-11-28 14:06 | Outpatient (RCR) | payer BC, SELFPAY ==
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
--- NOTE | 2020-12-21 12:02 | OTOPEVAL ---
Thank you for referring Waqar Hernandez to [facility].? The patient is scheduled to be seen for therapy? ____x/week for ___ weeks. Please review, sign, date and return this plan of care GM. I agree with and certify that the following plan of care is medically necessary. Referring Physician Date Admitting Provider: Attending Provider: Kailey Weir, ALEM Referring Provider: *OT Outpatient Evaluation Start: 11/28/20 11:54 Freq: Status: Active Protocol: Document 12/21/20 11:00 [facility] (Rec: 12/21/20 12:01 [facility] [id number]) Therapy Assessment Status Assessment Status Assessment Status Re-evaluation Outpatient Past Medical History Neurological History Hx Neurological Disorders No Significant History Cardiovascular History Hx Hypercholesterolemia Yes Hx Hypertension Yes Respiratory History Hx Respiratory Disorders No Significant History Gastrointestinal History Hx Hernia Yes: umbilical hernia Genitourinary History Hx Kidney Stones Yes Musculoskeletal History Hx Back Injury Yes: 1984 Hematological History Hx Hematological Disorders No Significant History Endocrine History Hx Thyroidectomy Yes: parathyroid gland removed 2017 HEENT History Hx HEENT Disorders No Significant History Integumentary History Hx Skin Disorders No Significant History Reproductive History Hx Reproductive Disorders No Significant History Psychosocial History Hx Psychiatric Disorders No Significant History Pain History History of Any Previous or Ongoing No Significant History Instance of Pain Anesthesia History Hx Anesthesia Reactions No Significant History Evaluation Information Problem Subjective Information Patient reports that his R Query Text:As Reported By Patient/ index finger continues to be Family sore and painful. He reports that it seems to always be at a 2 and with certain movements it can go up to a 4 . Patient reports that he is scheduled to see hand specialist on February 01, 2021 . Overall, patient feels that he has improved from initially coming to therapy but seems to at a standstill. Pain Assessment Timing of Pain Assessment Timing of Pain Assessment Re-assessment Pain Scale Pain Scale Used Numeric (1 - 10) Self Report Pain Assessment Right Hand(s) Reported Pain Level 2 Pain Score Pain Score 2: Self Report Inte
== END 2020-12-21 14:21 | disposition home or self-care (01) ==
LOC: CHSOT 14:06
PROVIDERS: Visit Provider Physician Assistant
DX: M79.641 Pain in right hand (principal)
CPT/HCPCS: 97110; 97140; 97165

== ENCOUNTER → 2021-05-13 15:34 | Outpatient (CLI) | payer BC, SELFPAY ==
--- NOTE | ~2021-05-13 | MR_ITS ---
EXAMINATION: MR hand RT wo con DATE: 05/13/2021 16:33 INDICATION: Right hand pain and stiffness. TECHNIQUE: Magnetic resonance imaging (MRI) of the right hand was performed without intravenous contr ast. Sequences included axial, coronal, and sagittal T2-weighted FS FSE and T1-weighted FSE and sagit abilio STIR FSE. COMPARISON: Right hand radiographs 11/14/2020 FINDINGS: Bone alignment is normal. No fracture. There is a benign bone island in head of second prox imal phalanx. There is mild osteoarthritis of triscaphe joint and first carpometacarpal joint. There is mild osteoarthritis of first interphalangeal joints and third and fourth distal interphalangeal dara ints. At second proximal interphalangeal joint, there is thickening of radial collateral ligament. Th e flexor and extensor tendons are normal. There is a skin marker dorsal to second proximal phalanx. IMPRESSION: 1. Thickening of radial collateral ligament at second proximal interphalangeal joint, consistent with sprain. 2. Mild polyarticular osteoarthritis. Reviewed, dictated and finalized at location A. [employer]
== END ==
PROVIDERS: Visit Provider Plastic Surgery
DX: S66.110D Strain of flexor muscle, fascia and tendon of right index finger at wrist and hand level, subsequent encounter (principal); M19.041 Primary osteoarthritis, right hand
CPT/HCPCS: 73218

== ENCOUNTER 2021-07-18 13:08 | Emergency (ER) | payer BC, SELFPAY ==
[2021-07-18 13:28] VITALS: BP 145/94; PULSE 94; RESP 18; TEMP 36.1; O2SAT 98
--- NOTE | 2021-07-18 14:08 | ECG_ITS ---
Measurements Intervals Hunt Rate: 83 P: 54 TN: 177 QRS: 19 QRSD: 95 T: 9 QT: 355 QTc: 418 Interpretive Statements SINUS RHYTHM POSSIBLE INFERIOR MYOCARDIAL INFARCTION , PROBABLY OLD [30 ms Q WAVE IN II/aVF] ABNORMAL ECG COMPARED TO ECG 11/14/2020 19:05:42 HEART RATE HAS DECREASED Electronically Signed On 07-18-2021 15:28:51 CDT by Andreas Barger M.D.
--- NOTE | 2021-07-18 14:15 | ED.DIZZY ---
HPI - Dizziness General Chief Complaint: Dizziness Stated Complaint: Light headed/Stomache full feeling Time Seen by Provider: 07/18/21 14:15 Source: patient Mode of arrival: ambulatory History of Present Illness HPI Narrative: this is a 61-year-old gentleman that presents with some last 3 days being lightheaded having some abdominal bloating, patient states that he was exposed to COVID through a stepdaughter, currently there is no fever chills no cough or congestion no shortness of breath no chest pain no diarrhea constipation no nausea vomiting. MD elicited complaint: lightheadedness Onset (ago): day(s) Timing: gradual onset Severity: moderate Description: lightheadedness Related Data Home Medications Medication Instructions Recorded Confirmed amlodipine 5 mg PO HS 09/23/20 07/18/21 atorvastatin 40 mg PO 09/23/20 07/18/21 Allergies Allergy/AdvReac Type Severity Reaction Status Date / Time No Known Allergies Allergy Verified 07/18/21 13:25 Review of Systems Review of Systems: All systems reviewed & are unremarkable except as noted in HPI and below PMFSH Past Medical History Medical History Enlarged prostate History of flexible sigmoidoscopy flexible sigmoidoscopy for constipation, reportedly normal HTN (hypertension), malignant PSA elevation Surgical History Surgical History H/O parathyroidectomy Family History Family History Father Diabetes mellitus Mother Cancer Other Family history of arthritis Family history of hepatitis Family history of liver disease Family history of primary malignant neoplasm of liver Social History Social History Social History: The patient was with his who is a durable power collections attorney for healthcare. The patient has 3 step children. He has no biological children of his own. The patient works for the [employer]. The patient is a full code. Patient's lifelong nonsmoker. Does not use any marijuana illicit drugs or alcohol Smoking status: Never smoker Alcohol intake: never Substance use: never Substance use type: does not use Gender identity (if verbalized by the patient): Male Spiritual care concerns: No Exam Const: General: no acute distress and alert Orientation/consciousness: patient oriented x3 HENMT: Head: normal to inspection Eyes: Conjunctivae: conjunctivae normal Pupils: Equal, round and reactive pupils present EOM: EOMs intact bilaterally Direct Ophthalmoscopy: no photophobia Neck: Neck: normal visual inspection and no lymphadenopathy Chest: Chest palpation & inspection: normal inspection of the chest Resp: Effort & Inspection: normal respiratory effort Cardio: Rate: regular rate Rhythm: regular rhythm GI: Auscultation: normal bowel sounds Urinary Catheter: Urinary Catheter: patent and draining Back/Spine/Pelvis: Back: no CVA tenderness Skin: General skin exam: normal color Rashes: no rashes Neuro: General: patient oriented x3, moves all extremities, no meningeal signs and no focal motor deficits Extrem: General: normal to inspection and no pedal edema Psych: Mental Status: mental status grossly normal Course Course Emergency Course: Labs and EKG were reviewed with the patient the patient is currently comfortable not as lightheaded as he was earlier blood pressure is stable. patient is positive for COVID Vital Signs Vital signs: Vital Signs Temperature 36.1 C L 07/18/21 13:28 Pulse Rate 94 07/18/21 13:28 Respiratory Rate 18 07/18/21 13:28 Blood Pressure 145/94 H 07/18/21 13:28 Pulse Oximetry 98 07/18/21 13:28 Temperature 36.1 C L 07/18/21 13:28 Pulse Rate 94 07/18/21 13:28 Respiratory Rate 18 07/18/21 13:28 Blood Pressure 145/
[2021-07-18] MEDS: SODIUM CHLORIDE 0.9% IV 1,000 ML 999 ML IV CONT (14:27)
[2021-07-18 14:29] LABS: Hematocrit 45.7 % (40.0-54.0); Hemoglobin 15.4 g/dL (14.0-18.0); Mean Corpuscular HGB Conc 33.7 g/dL (32.0-36.0); Mean Corpuscular Hemoglobin 28.2 pg (27.0-31.0); Mean Corpuscular Volume 83.7 fL (78.0-102.0); Mean Platelet Volume 10.2 fl (8.7-11.0); Platelet Count Result 324 K/mm3 (150-420); Red Blood Count 5.46 M/mm3 (4.70-6.10); Red Cell Distribution Width 12.6 % (11.6-14.4); White Blood Count 3.8 K/mm3 (4.8-10.8)
--- NOTE | 2021-07-18 14:36 | PC.NURSE ---
Pt aware of UA order. Urinal at bedside. IVF infusing. Pt will notify staff when he has a urine sample available.
[2021-07-18 14:41] LABS: Alanine Aminotransferase 78 U/L (16-63); Albumin Level 3.7 g/dL (3.4-5.0); Alkaline Phosphatase 132 U/L (46-116); Anion Gap 7 mmol/L (8-16); Aspartate Amino Transferase 29 U/L (15-37); Bilirubin,Total 0.7 mg/dL (0.00-1.00); Blood Urea Nitrogen 17 mg/dL (7-18); Calcium 8.8 mg/dL (8.5-10.1); Carbon Dioxide 28 mmol/L (21-32); Chloride 100 mmol/L (98-108); Creatine Kinase 366 U/L (39-308); Estimated CRCL calculation 67 ml/min; Estimated Glomerular Filt Rate > 60; Glucose 196 mg/dL (70-99); Osmolality Calculated 286 mOsm/kg (285-295); Potassium 3.8 mmol/L (3.5-5.1); Sodium 135 mmol/L (136-145); Total Protein 7.2 g/dL (6.4-8.2)
[2021-07-18 14:44] LABS: Add Urine Microscopic? YES; Appearance Urine Clear (Clear); Bilirubin Urine Negative (Negative); Blood Urine Negative (Negative); Color Urine Light Yellow (Yellow); Glucose Urine UA Trace (Negative); Ketones Urine Negative (Negative); Leukocyte Esterase Ur Negative (Negative); Nitrate Urine Negative (Negative); Protein Urine Negative (Negative); Specific Grav Ur 1.025 (1.010-1.020); Urobilinogen Urine 0.2 mg/dL (0.2-1.0)
[2021-07-18 14:50] LABS: RBC Urine None seen /hpf (0-2); Squamous Epithelial Cell Urine Few /hpf (Few); WBC Urine None seen /hpf (0-3)
[2021-07-18 14:51] LABS: Bacteria Urine Trace /hpf
[2021-07-18 14:55] LABS: Band Neutrophils Percent 0 % (0-6); Basophils Percent Manual 0 % (0-1); Eosinophils Absolute Manual 0.07 K/mm3 (0.02-0.5); Eosinophils Percent Manual 2 % (1-6); Lymphocytes Absolute Manual 1.86 K/mm3 (1.1-4.5); Lymphocytes Percent Manual 49 % (18-44); Monocytes Absolute Manual 0.38 K/mm3 (0.1-0.90); Monocytes Percent Manual 10 % (3-9); Neutrophils Absolute Manual 1.48 K/mm3 (1.3-6.7); Neutrophils Percent Manual 39 % (46-73); Total Cells Counted 100
[2021-07-18 14:56] LABS: Platelet Estimate Adequate (Adequate)
[2021-07-18 15:01] LABS: SARS-CoV-2 RNA PCR Positive (Negative)
[2021-07-18 15:02] LABS: Influenza A QL RT-PCR Negative (Negative); Influenza B QL RT-PCR Negative (Negative)
--- NOTE | 2021-07-18 15:08 | PC.NURSE ---
ERP at bedside updating pt about test results. IVF infusing.
[2021-07-18 15:38] VITALS: BP 152/105; PULSE 83; RESP 16; O2SAT 97
== END 2021-07-18 15:39 | disposition home or self-care (01) ==
PROVIDERS: Emergency Provider Emergency Medicine; PCP Family Medicine Adolescent Medicine
DX: U07.1 COVID-19 (principal)
CPT/HCPCS: 73140; 80053; 81001; 82550; 85025; 87502; 93005; 96360; 99283; C9803; J7030; U0003; U0005

== ENCOUNTER 2022-01-24 00:16 | Day surgery (SDC) | payer BC, SELFPAY ==
[2022-01-10 12:49] VITALS: BMI 29.6
[2022-01-24 08:48] VITALS: BP 119/82; PULSE 87; RESP 16; TEMP 36.1; O2SAT 99
[2022-01-24] MEDS: LACTATED RINGERS 1,000 ML 150 ML IV CONT (08:59)
[2022-01-24 09:04] LABS: Glucose Point of Care 141 mg/dl (65-105)
--- NOTE | 2022-01-24 09:21 | WPDANESEPPF ---
Anes - Initial Pre Proc Eval Procedure: Operation Date: 01/24/22 09:30 Proposed Procedures p Screening Colonoscopy - Mahamed Delgado MD Date/Time: 01/24/22 09:21 Surgeon: Mahamed Delgado MD Pre Op Diagnosis: neoplasm screening Patient Data Age: 61 Gender: M Height: 1.75 m Weight: 89.3 kg Last Vital Signs Temp 96.9 F L 01/24/22 08:48 Pulse 87 01/24/22 08:48 Resp 16 01/24/22 08:48 BP 119/82 01/24/22 08:48 Pulse Ox 99 01/24/22 08:48 O2 Del Method Room Air 01/24/22 08:48 Allergies Allergy/AdvReac Type Severity Reaction Status Date / Time No Known Allergies Allergy Verified 01/24/22 08:45 Home Medications Medication Instructions Recorded Confirmed Type amlodipine 5 mg tablet 5 mg PO HS 09/23/20 01/24/22 History atorvastatin 40 mg tablet 40 mg PO HS #90 tabs 09/23/21 01/24/22 Rx sodium,potassium,mag sulfates 17.5 See Rx Instructions PO .COMPLEX 12/12/21 01/24/22 Rx gram-3.13 gram-1.6 gram oral soln #354 mL (Suprep Bowel Prep Kit) metformin 1,000 mg tablet 1,000 mg PO DAILY 01/10/22 01/24/22 History Laboratory Tests 01/24/22 09:02 POC Capillary Glucose 141 mg/dl H mg/dl (65-105) Patient hx anesthesia problems: none Family hx anesthesia problems: none Results Review: All pre-operative results and documents have been reviewed as part of the pre-operative evaluation. [facility] Past Medical History Medical History Enlarged prostate History of flexible sigmoidoscopy flexible sigmoidoscopy for constipation, reportedly normal HTN (hypertension), malignant PSA elevation Surgical History Surgical History H/O parathyroidectomy Family History Family History Father Diabetes mellitus Mother Cancer Other Family history of arthritis Family history of hepatitis Family history of liver disease Family history of primary malignant neoplasm of liver Social History Social History Social History: The patient was with his who is a durable power assistant attorney general for healthcare. The patient has 3 step children. He has no biological children of his own. The patient works for the [employer]. The patient is a full code. Patient's lifelong nonsmoker. Does not use any marijuana illicit drugs or alcohol Smoking status: Never smoker Alcohol intake: never Substance use: never Substance use type: does not use Living arrangements: with family Gender identity (if verbalized by the patient): Male Spiritual care concerns: No Anes - Eval Final PreProcedure Day of Procedure 01/24/22 09:21 Patient weight: obese Heart: regular rate and rhythm Lungs: clear to auscultation Airway: Mallampati scale class II Neurological: alert and oriented Last oral intake: >/= 8 hours ASA classification: III Emergent: no Anesthetic plan: proceed Anesthesia type and monitoring: general GIVS and standard monitoring Results Review: All pre-operative results and documents have been reviewed as part of the pre-operative evaluation. Informed Consent: The patient's anesthetic plan and its attendant risks and benefits were discussed with the patient/family/POA. Questions were solicited and answers provided to the satisfaction of the patient/family/POA.
--- NOTE | 2022-01-24 09:33 | PM.HPGS ---
History of Present Illness History of Present Illness Consent: Risks, benefits, and alternatives have been discussed and questions answered. Patient agrees to proceed with procedure. Chief complaint: neoplasm screening Narrative: Waqar Hernandez is a 61 year old male Presents for screening colonoscopy. Patient has a history of diverticulitis 1 year ago. Since that time he has had several recurrent bouts of constipation and left lower quadrant discomfort. He noticed this discomfort intermittently. He takes stool softeners and laxatives on a regular basis. Between episodes he feels quite normal. Patient presents today for evaluation of left lower quadrant pain. Also for neoplasia screening purposes. Family history is noncontributory. No reported history of colon or rectal disease. Review of Systems Review of Systems: Review of systems noncontributory. [facility] Past Medical History Medical History Enlarged prostate History of flexible sigmoidoscopy flexible sigmoidoscopy for constipation, reportedly normal HTN (hypertension), malignant PSA elevation Surgical History Surgical History H/O parathyroidectomy Family History Family History Father Diabetes mellitus Mother Cancer Other Family history of arthritis Family history of hepatitis Family history of liver disease Family history of primary malignant neoplasm of liver Social History Social History Social History: The patient was with his who is a durable power associate attorney for healthcare. The patient has 3 step children. He has no biological children of his own. The patient works for the [employer]. The patient is a full code. Patient's lifelong nonsmoker. Does not use any marijuana illicit drugs or alcohol Smoking status: Never smoker Alcohol intake: never Substance use: never Substance use type: does not use Living arrangements: with family Gender identity (if verbalized by the patient): Male Spiritual care concerns: No Meds Home Medications and Allergies Home Medications Medication Instructions Recorded Confirmed Type amlodipine 5 mg tablet 5 mg PO HS 09/23/20 01/24/22 History atorvastatin 40 mg tablet 40 mg PO HS #90 tabs 09/23/21 01/24/22 Rx sodium,potassium,mag sulfates 17.5 See Rx Instructions PO .COMPLEX 12/12/21 01/24/22 Rx gram-3.13 gram-1.6 gram oral soln #354 mL (Suprep Bowel Prep Kit) metformin 1,000 mg tablet 1,000 mg PO DAILY 01/10/22 01/24/22 History Allergies Allergy/AdvReac Type Severity Reaction Status Date / Time No Known Allergies Allergy Verified 01/24/22 08:45 Vital Signs Vital Signs - 24 hr 01/24/22 08:48 Temperature 96.9 F L Pulse Rate 87 Respiratory Rate 16 Blood Pressure 119/82 Pulse Oximetry 99 Oxygen Delivery Room Air Exam Narrative: Physical exam reveals patient to be alert. Vital signs stable. HEENT exam is unremarkable. Patient is anicteric. Bowel sounds are present soft nontender with no hepatosplenomegaly. Patient has an umbilical hernia. Digital external rectal exam is normal. Assessment and Plan Assessment and plan (1) Diverticulitis: Code(s): K57.92 - Diverticulitis of intestine, part unspecified, without perforation or abscess without bleeding Status: Acute Assessment and Plan: Patient has a history of diverticulitis 1 year ago. He has had recurrent episodes of left lower quadrant pain a tendency towards constipation this will be evaluated time of colonoscopy. Stool softeners are recommended daily and laxatives as needed further recommendations may be given after endoscopy. (2) Encounter for screening colonoscopy: Code(s): Z12.11 - Encounter for screening for malignant michael
[2022-01-24 10:05] VITALS: BP 111/71; PULSE 80; RESP 22; O2SAT 97
[2022-01-24 10:15] VITALS: BP 109/72; PULSE 86; RESP 22; O2SAT 96
[2022-01-24 10:25] VITALS: BP 121/85; PULSE 73; RESP 23; O2SAT 100
== END 2022-01-24 10:35 | disposition home or self-care (01) ==
PROVIDERS: PCP Family Medicine Adolescent Medicine; Visit Provider Internal Medicine Gastroenterology
PROC: 0DJD8ZZ Inspection of Lower Intestinal Tract, Via Natural or Artificial Opening Endoscopic (ICD-10-PCS; CPT 45378; principal; 2022-01-24 09:30)
DX: Z12.11 Encounter for screening for malignant neoplasm of colon (principal); K64.8 Other hemorrhoids; R10.32 Left lower quadrant pain; K57.92 Diverticulitis of intestine, part unspecified, without perforation or abscess without bleeding; K59.00 Constipation, unspecified; I10 Essential (primary) hypertension; N40.0 Benign prostatic hyperplasia without lower urinary tract symptoms; R97.20 Elevated prostate specific antigen [PSA]; Z79.84 Long term (current) use of oral hypoglycemic drugs
CPT/HCPCS: 45378; 82948; J2704; J7120

== ENCOUNTER 2022-03-07 12:40 | Outpatient (CLI) | payer BC, SELFPAY ==
[2022-03-07 15:54] LABS: Anion Gap 12 mmol/L (8-16); Blood Urea Nitrogen 13 mg/dL (9-20); Calcium 9.4 mg/dL (8.4-10.2); Carbon Dioxide 29 mmol/L (22-30); Chloride 99 mmol/L (98-107); Estimated Glomerular Filt Rate > 60; Glucose 154 mg/dL (65-110); Potassium 4.1 mmol/L (3.4-5.0); Sodium 140 mmol/L (137-145)
== END 2022-03-07 12:41 | disposition home or self-care (01) ==
PROVIDERS: Anesthesiology; PCP Family Medicine Adolescent Medicine; Visit Provider Surgery
DX: K40.90 Unilateral inguinal hernia, without obstruction or gangrene, not specified as recurrent (principal); E11.9 Type 2 diabetes mellitus without complications; Z01.818 Encounter for other preprocedural examination
CPT/HCPCS: 36415; 80048; 86850; 86900; 86901

== ENCOUNTER 2022-03-19 01:43 | Day surgery (SDC) | payer BC, SELFPAY ==
[2022-03-07 09:16] VITALS: BMI 29.5
--- NOTE | 2022-03-07 09:25 | PC.NURSE ---
Report to the Outpatient Waiting Room, entrance under the green pavilion located off [facility], at time 8:00 on date 03/19/22. Planned Procedure Time: 10:00. Time changes happen often and if your time is changed the preop area will call you the afternoon before. - You and your visitor will be asked to self-screen and do not enter if you have any COVID symptoms. - Only one visitor is requested with a max of two and NO children visitors are allowed at this time. - The patient visitor may be requested to leave or wait in car when not with patient due to distancing restrictions. - A mask is optional within the hospital. Patients may have clear liquids (water, carbonated beverages, clear teas, apple juice) until 3 hours prior to surgery (7:00) with a maximum of 20 ounces. - No food from midnight until time of surgery Take the following medications with a SIP of water the morning of surgery: N/A Medications to discontinue per physician: N/A Date to take last dose: N/A Please no make-up, nail fijian, hairspray, perfume, deodorant, or body powder the day of surgery. No jewelry (including any body piercings) or valuables the day of surgery, leave them at home. Please take a shower or bath the night before, or the morning of, surgery with an antibacterial soap (HIBICLENS). Wear comfortable, loose fitting clothing. - Jewelry must be removed prior to entering the operating room. Rings and piercings that are not removed may be cut off. - The hospital will not accept responsibility for valuables. - Please leave all valuables, including medications, at home the day of surgery. If you are going home after surgery, a licensed farm truck driver must drive you home. - NO public transportation without another adult if you receive anesthesia. - We recommend that an adult stay with you for 24 hours following discharge. - We also recommend that you do not drive, make important decision, drink alcoholic beverages, or take any drugs that were not prescribed by your health care provider for at least 24 hours after your discharge time. Follow any additional instructions given to you from your surgeon. If you or anyone in your household have experienced Covid symptoms in the past week, please notify your surgeon or the nurse liaison at the phone number below for possible testing. Telephone instructions given to PT - JULIAN RAYA and asked if any additional questions and then verbalized understanding. Patient advised to call surgeon office or pre surgery nurse liaison [phone] if any additional questions.
[2022-03-19] VITALS (10 sets, daily range): BP systolic 121–135; BP diastolic 77–92; PULSE 79–106; RESP 13–21; TEMP 35.8–36.8; O2SAT 96–100
--- NOTE | 2022-03-19 08:33 | P.PNAN_ITS ---
Anes - Initial Pre Proc Eval Procedure: Operation Date: 03/19/22 10:00 Proposed Procedures p Laparoscopic Left Inguinal Hernia Repair with Mesh, Davinci Assisted, - Zak Short DO s Open Incarcerated Ventral Hernia Repair with Mesh - Zak Short DO Date/Time: 03/19/22 08:33 Surgeon: Zak Short DO Pre Op Diagnosis: incarcerated ventral hernia, Lt Ing Hernia Patient Data Age: 62 Gender: M Height: 1.75 m Weight: 90.72 kg Allergies Allergy/AdvReac Type Severity Reaction Status Date / Time No Known Allergies Allergy Verified 03/10/22 15:29 Home Medications Medication Instructions Recorded Confirmed Type amlodipine 5 mg tablet 5 mg PO HS 09/23/20 03/10/22 History atorvastatin 40 mg tablet 40 mg PO HS #90 tabs 02/20/22 03/10/22 Rx glimepiride 1 mg tablet 1 mg PO QAM #90 tabs 03/10/22 03/10/22 Rx Patient hx anesthesia problems: none Family hx anesthesia problems: none Results Review: All pre-operative results and documents have been reviewed as part of the pre- operative evaluation. [facility] Past Medical History Medical History (Updated 03/10/22 @ 16:11 by García Morris MD) COVID-19 Diverticulitis (09/2020) Enlarged prostate HTN (hypertension), malignant PSA elevation Surgical History Surgical History H/O parathyroidectomy History of flexible sigmoidoscopy flexible sigmoidoscopy for constipation, reportedly normal Family History Family History Father Diabetes mellitus Mother Cancer Other Family history of arthritis Family history of hepatitis Family history of liver disease Family history of primary malignant neoplasm of liver Social History Social History Social History: The patient was with his who is a durable power [place] attorney for healthcare. The patient has 3 step children. He has no biological children of his own. The patient works for the [employer]. The patient is a full code. Patient's lifelong nonsmoker. Does not use any marijuana illicit drugs or alcohol Smoking status: Never smoker Alcohol intake: never Substance use: never Substance use type: does not use Living arrangements: with family Additional occupation/education comments: [employer] Gender identity (if verbalized by the patient): Male Spiritual care concerns: No Anes - Eval Final PreProcedure Day of Procedure 03/19/22 08:33 Patient weight: overweight Heart: regular rate and rhythm Lungs: clear to auscultation Airway: Mallampati scale class II Neurological: alert and oriented Last oral intake: >/= 8 hours ASA classification: III Emergent: no Anesthetic plan: proceed Anesthesia type and monitoring: general ETT and standard monitoring Results Review: All pre-operative results and documents have been reviewed as part of the pre- operative evaluation. Informed Consent: The patient's anesthetic plan and its attendant risks and benefits were discussed with the patient/family/POA. Questions were solicited and answers provided to the satisfaction of the patient/family/POA.
[2022-03-19 08:40] LABS: Glucose Point of Care 271 mg/dl (65-105)
[2022-03-19 08:40] LABS: Glucose Point of Care 260 mg/dl (65-105)
[2022-03-19] MEDS: LACTATED RINGERS 1,000 ML 30 ML IV CONT ×2 (08:50→11:27)
[2022-03-19] MEDS: ACETAMINOPHEN 500 MG TABLET 1000 MG PO (08:50)
[2022-03-19] MEDS: KETOROLAC 15 MG/ML VIAL (*BKC) IV PUSH (08:50)
[2022-03-19] MEDS: CHLORHEXIDINE GLUCONATE 4% SOL 120 ML BTL 1 APPLIC TOPICAL (08:50)
--- NOTE | 2022-03-19 09:04 | WPDHPUPDATE1 ---
History and Physical Update Update Date/Time: 03/19/22 09:04 History and Physical has been reviewed, including an updated exam of the patient. There are NO changes in the patient's condition. Risks, benefits, and alternatives have been discussed and questions answered. Patient agrees to proceed with procedure.
--- NOTE | 2022-03-19 09:04 | PM.IMHP ---
H&P: HPI History of Present Illness Date/Time: 03/19/22 09:04 Chief Complaint: Ventral and left inguinal hernia Narrative: This is a 62-year-old man who presents for ventral hernia repair and left inguinal hernia repair. He reports no changes since last seen in the office. Review of Systems Review of Systems: All systems reviewed & are unremarkable except as noted in HPI and below Constitutional: Constitutional: Denies chills, Denies fever(s), Denies headache(s) and Denies weight loss Eyes: Eyes: Denies change in vision ENT: Denies dizziness, Denies headache(s), Denies neck mass and Denies throat swelling Cardiovascular: Cardiovascular: Denies chest pain, Denies lightheadedness and Denies dyspnea Respiratory: Respiratory: Denies cough, Denies dyspnea and Denies wheezing Gastrointestinal: Gastrointestinal: Denies abdominal pain, Denies change in bowel habits, Denies nausea and Denies vomiting Genitourinary: Genitourinary: Denies hematuria and Denies dysuria Musculoskeletal: Musculoskeletal: Reports as per HPI Integumentary/Breasts: Skin/Breast: Reports as per HPI Neurologic: Denies dizziness and Denies headache(s) Allergic/Immunologic: Allergic/Immunologic: Denies throat swelling and Denies wheezing [facility] Past Medical History Medical History (Updated 03/10/22 @ 16:11 by García Morris MD) COVID-19 Diverticulitis (09/2020) Enlarged prostate HTN (hypertension), malignant PSA elevation Surgical History Surgical History H/O parathyroidectomy History of flexible sigmoidoscopy flexible sigmoidoscopy for constipation, reportedly normal Family History Family History Father Diabetes mellitus Mother Cancer Other Family history of arthritis Family history of hepatitis Family history of liver disease Family history of primary malignant neoplasm of liver Social History Social History Social History: The patient was with his who is a durable power trim die maker for healthcare. The patient has 3 step children. He has no biological children of his own. The patient works for the [employer]. The patient is a full code. Patient's lifelong nonsmoker. Does not use any marijuana illicit drugs or alcohol Smoking status: Never smoker Alcohol intake: never Substance use: never Substance use type: does not use Living arrangements: with family Additional occupation/education comments: [employer] Gender identity (if verbalized by the patient): Male Spiritual care concerns: No Meds Home Medications and Allergies Home Medications Medication Instructions Recorded Confirmed Type amlodipine 5 mg tablet 5 mg PO HS 09/23/20 03/10/22 History atorvastatin 40 mg tablet 40 mg PO HS #90 tabs 02/20/22 03/10/22 Rx glimepiride 1 mg tablet 1 mg PO QAM #90 tabs 03/10/22 03/10/22 Rx Allergies Allergy/AdvReac Type Severity Reaction Status Date / Time No Known Allergies Allergy Verified 03/19/22 08:54 Vital Signs Vital Signs - 24 hr 03/19/22 08:56 Temperature 35.8 C L Pulse Rate 106 H Respiratory Rate 14 Blood Pressure 130/92 H Pulse Oximetry 99 Oxygen Delivery Room Air Exam Const: General: no acute distress and alert Orientation/consciousness: patient oriented x3 HENMT: Head: normocephalic and atraumatic Ears: hearing grossly normal bilaterally Face/Nose/Sinus: Normal nares present Mouth: Yes Normal oral and palatal mucosa present Eyes: Periorbital: periorbital findings normal Sclera: sclerae normal EOM: EOMs intact bilaterally Neck: Neck: normal visual inspection, no lymphadenopathy and trachea midline Chest: Chest palpation & inspection: normal inspection of the chest Resp: Effort & Inspection: normal respiratory effort Auscultation: clear to auscultation bilaterally Cardio:
--- NOTE | 2022-03-19 09:18 | SUR.PREOP ---
DR ALMEIDA AWARE OF GLUCOSE OF 260. NO ORDERS AT THIS TIME.
[2022-03-19] MEDS: ceFAZolin 2 GM/D5W 50 ML 2 GM/50 ML BAG IVPB (09:28)
[2022-03-19] MEDS: BUPIVACAINE HCL 0.5% PF 30 ML VIAL INFILTRATE (10:18)
--- NOTE | 2022-03-19 11:23 | W.PM.PROC2 ---
Procedure Note - Detailed Date of Procedure 03/19/22 Pre-op Diagnosis incarcerated ventral hernia, Lt Ing Hernia Post-op Diagnosis Same Procedure Performed 1. Incarcerated ventral hernia repair with 6.[address] hernia patch 2. Laparoscopic left inguinal hernia repair with mesh, da Gene assisted Surgeon Zak Short DO Anesthesia General and Local (0.5% bupivacaine with epinephrine) Indications This is a 62-year-old man who presented with a ventral periumbilical hernia and left inguinal hernia. He was hospitalized about 18 months ago with diverticulitis and these hernias were identified on the CT. The ventral hernia appeared to be incarcerated with omentum. The left inguinal hernia appeared reducible. Discussions were made with the patient about treatment options and decision was made to proceed with open incarcerated ventral hernia repair with mesh and robotic assisted laparoscopic left inguinal hernia repair with mesh. Findings The robotic assisted laparoscopic left inguinal hernia repair was performed initially. The ventral hernia was incarcerated with omentum and this had to be reduced laparoscopically in order to be able to place my ports and proceed with the left inguinal hernia repair. The patient was found to have a moderate-sized reducible indirect left inguinal hernia. A robotic transabdominal preperitoneal approach was utilized for repair. After completing the laparoscopic portion, the ports were then removed. I then extended the incision at the supraumbilical region and then repaired the incarcerated ventral hernia. The hernia defect measured 1.5 cm. This was repaired using a 6.[address] hernia patch. The ventral hernia sac was excised and sent to the lab for pathology. Description of Procedure Procedure as well as risks, benefits, and alternatives were discussed with the patient. Written consent was obtained and placed in chart prior to procedure. Patient was brought back to surgical suite. He was placed supine on operating table. Time-out was done to confirm patient and procedure. He was then intubated by Anesthesia Department. His abdomen was prepped and draped in sterile fashion using chlorhexidine prep. 0.5% bupivacaine with epinephrine was infiltrated at each location for incision. An 8 mm incision was made in the left lateral abdomen, and a 5 mm Optiview trocar was advanced through the abdominal layers under direct visualization. Once inside the abdominal cavity, carbon dioxide insufflation was used to create a pneumoperitoneum. A camera was inserted and the abdominal cavity was inspected. The patient was placed in slight Trendelenburg position. An 8 millimeter incision was made on the right lateral abdomen and an 8 millimeter trocar was inserted under direct visualization. Another 8 millimeter incision was made just superior to the umbilicus and an 8 millimeter trocar was inserted under direct visualization. The 5 mm port was then removed and this was replaced with another 8 mm robotic port. The robotic arms were brought up to the patient's bedside and secured to the ports. The camera and instruments were inserted. I then moved over to the robotic console and took control of the camera and instruments. After careful inspection of the abdominal cavity, I began scoring the peritoneum along the left lower quadrant using scissors with electrocautery. The preperitoneal plane was entered and this was carefully dissected caudally along the inferior epigastric vessels. Careful dissection with scissors with electrocautery and blunt dissection was used to continue this dissection. I dissected far enough laterally to allow for mesh placement, and also dissected medially to identify the pubic arch and Charli's ligament. The hernia sac was identified and carefully dissected posteriorly. The cord contents were also identified and the peritoneum was carefully dissected far enough posteriorly to allow for mesh placem
[2022-03-19 11:48] LABS: Glucose Point of Care 239 mg/dl (65-105)
--- NOTE | 2022-03-19 11:59 | SUR.PHASEI ---
1157: Simple mask removed.
[2022-03-19] MEDS: oxyCODONE HCL (*CRX) 5 MG TAB IR PO (13:27)
== END 2022-03-19 13:50 | disposition home or self-care (01) ==
PROVIDERS: PCP Family Medicine Adolescent Medicine; Visit Provider Surgery
PROC: 8E0Y4CZ Robotic Assisted Procedure of Lower Extremity, Percutaneous Endoscopic Approach (ICD-10-PCS; CPT 49650; principal; 2022-03-19 10:00)
PROC: 0WQF0ZZ Repair Abdominal Wall, Open Approach (ICD-10-PCS; CPT 49650; 2022-03-19 10:00)
DX: K43.6 Other and unspecified ventral hernia with obstruction, without gangrene (principal); K40.90 Unilateral inguinal hernia, without obstruction or gangrene, not specified as recurrent; I10 Essential (primary) hypertension; Z79.84 Long term (current) use of oral hypoglycemic drugs
CPT/HCPCS: 49650; 49561; 49568; S2900; 82948; 88302; A9270; C1781; J0690; J1100; J1170; J1885; J2250; J2405; J2704; J2710; J3010; J7030; J7120

== ENCOUNTER 2023-12-02 16:26 | Outpatient (CLI) | payer BC, SELFPAY ==
[2023-12-02 17:20] LABS: Anion Gap 9 mmol/L (4-12); Blood Urea Nitrogen 22 mg/dL (9-20); Calcium 9.1 mg/dL (8.4-10.2); Carbon Dioxide 30 mmol/L (22-30); Chloride 100 mmol/L (98-107); Estimated Glomerular Filt Rate 51; Glucose 105 mg/dL (65-110); Potassium 3.7 mmol/L (3.4-5.0); Sodium 139 mmol/L (137-145)
== END 2023-12-02 16:27 | disposition home or self-care (01) ==
LOC: ANHLAB 16:30
PROVIDERS: PCP Family Medicine Adolescent Medicine; Visit Provider Anesthesiology
DX: R97.20 Elevated prostate specific antigen [PSA] (principal); E11.65 Type 2 diabetes mellitus with hyperglycemia; Z01.818 Encounter for other preprocedural examination
CPT/HCPCS: 36415; 80048; 87086; 87088

== ENCOUNTER 2023-12-08 01:24 | Day surgery (SDC) | payer BC, SELFPAY ==
[2023-12-02 13:40] VITALS: BMI 31.0
--- NOTE | 2023-12-02 14:05 | PC.NURSE ---
Report to the Outpatient Waiting Room, entrance under the green pavilion located off [facility], at time _0700 on date _12/08/23 . Planned Procedure Time: _0900 . Time changes happen often and if your time is changed the preop area will call you the afternoon before. - You and your visitor will be asked to self-screen and do not enter if you have any COVID symptoms. - A mask is optional within the hospital at this time. Patients may have clear liquids (water, carbonated beverages, clear teas, apple juice) until 3 hours prior to surgery with a maximum of 20 ounces. - No food from midnight until time of surgery - Infants may have breast milk until 4 hours before surgery, infant formula 6 hours prior to surgery. - Children will be allowed to drink immediately following surgery. If applicable, please bring a bottle or sippy cup to assist with drinking. Juice, water, soda, and popsicles are readily available. For infants on formula, please bring formula the day of surgery. Pacifiers are allowed. Take the following medications with a SIP of water the morning of surgery: _None DO NOT STOP ANY OF YOUR OTHER PRESCRIPTION MEDICATIONS PRIOR TO SURGERY ?EXCEPT THE FOLLOWING Medications to discontinue per physician __Vitamins and supplements Date to take last dose___3 days prior Please no make-up, nail swiss, hairspray, perfume, deodorant, or body powder the day of surgery. No jewelry (including any body piercings) or valuables the day of surgery, leave them at home. Please take a shower or bath the night before, or the morning of, surgery with an antibacterial soap. Wear comfortable, loose fitting clothing. Children are encouraged to wear pajamas. - Jewelry must be removed prior to entering the operating room. Rings and piercings that are not removed may be cut off. - The hospital will not accept responsibility for valuables. - Please leave all valuables, including medications, at home the day of surgery. If you are going home after surgery, a licensed skip load driver must drive you home. - NO public transportation without another adult if you receive anesthesia. - We recommend that an adult stay with you for 24 hours following discharge. - We also recommend that you do not drive, make important decision, drink alcoholic beverages, or take any drugs that were not prescribed by your health care provider for at least 24 hours after your discharge time. For Pediatric surgeries, we recommend two adults accompany the child home. Follow any additional instructions given to you from your surgeon. If you or anyone in your household have experienced Covid symptoms in the past week, please notify your surgeon or the nurse liaison at the phone number below for possible testing. Telephone instructions given to _ Bill and asked if any additional questions and then verbalized understanding. Patient advised to call surgeon office or pre surgery nurse liaison [phone] if any additional questions.
[2023-12-08 07:00] VITALS: BP 148/93; PULSE 83; RESP 16; TEMP 36.5; O2SAT 99
--- NOTE | 2023-12-08 07:24 | PM.IMHP ---
H&P: HPI History of Present Illness Date/Time: 12/08/23 07:24 Chief Complaint: elevated psa Narrative: 63 year old male with elevated psa of 11 with abnormal mri presents for uronav us and prostate biopsy. Review of Systems Review of Systems: All systems reviewed & are unremarkable except as noted in HPI and below PMFSH Past Medical History Medical History COVID-19 Diverticulitis (09/2020) Enlarged prostate HTN (hypertension), malignant Incarcerated ventral hernia Left inguinal hernia PSA elevation Surgical History Surgical History H/O parathyroidectomy History of flexible sigmoidoscopy flexible sigmoidoscopy for constipation, reportedly normal Hx of inguinal hernia repair LAP LIH repair w mesh, Da Gene assisted, Open incisional ventral hernia repair w mesh on 03/19/22. Family History Family History Father Diabetes mellitus Mother Cancer Other Family history of arthritis Family history of hepatitis Family history of liver disease Family history of primary malignant neoplasm of liver Social History Social History Social History: The patient was with his who is a durable power bankruptcy attorney for healthcare. The patient has 3 step children. He has no biological children of his own. The patient works for the [employer]. The patient is a full code. Patient's lifelong nonsmoker. Does not use any marijuana illicit drugs or alcohol Smoking status: Never smoker Alcohol intake: never Substance use: never Substance use type: does not use Living arrangements: with family Occupation/Education: occupation Additional occupation/education comments: [employer] Gender identity (if verbalized by the patient): Male Spiritual care concerns: No Meds Home Medications and Allergies Home Medications Medication Instructions Recorded Confirmed Type sildenafil 100 mg tablet 100 mg PO DAILY PRN sexual 08/11/22 12/02/23 Rx activity #6 tabs pioglitazone 30 mg tablet 30 mg PO DAILY #90 tabs 01/22/23 12/02/23 Rx atorvastatin 40 mg tablet 40 mg PO HS #90 tabs 08/17/23 12/02/23 Rx amlodipine 5 mg tablet See Rx Instructions .Route 11/19/23 12/02/23 Rx .COMPLEX #90 tabs glimepiride 2 mg tablet See Rx Instructions .Route 11/19/23 12/02/23 Rx .COMPLEX #90 tabs ipratropium bromide 42 mcg (0.06 2 spray intranasal TID PRN Allergy 12/02/23 12/02/23 History %) nasal spray Symptoms multivit with minerals-iron 18 1 tablet PO DAILY 12/02/23 12/02/23 History mg-folic ac 400 mcg-vit K 25 mcg tablet (Adults Multivitamin) Allergies Allergy/AdvReac Type Severity Reaction Status Date / Time metformin AdvReac Intermediate Diarrhea Verified 12/07/23 12:37 Exam Const: General: cooperative and no acute distress Resp: Effort & Inspection: normal respiratory effort Cardio: Rate: regular rate Rhythm: regular rhythm Assessment and Plan Assessment and plan (1) PSA elevation: Code(s): R97.20 - Elevated prostate specific antigen [PSA] Status: Acute Assessment and Plan: Proceed with uronav us and prostate biopsy
--- NOTE | 2023-12-08 07:27 | WPDHPUPDATE1 ---
History and Physical Update Update Date/Time: 12/08/23 07:27 History and Physical has been reviewed, including an updated exam of the patient. There are NO changes in the patient's condition. Risks, benefits, and alternatives have been discussed and questions answered. Patient agrees to proceed with procedure.
[2023-12-08 07:35] LABS: Glucose Point of Care 174 mg/dl (65-105)
[2023-12-08] MEDS: LACTATED RINGERS 1,000 ML 30 ML IV CONT (07:42)
--- NOTE | 2023-12-08 07:59 | WPDANESEPPF ---
Anes - Initial Pre Proc Eval Procedure: Operation Date: 12/08/23 08:15 Proposed Procedures p Trans Rectal Ultrasound Fusion Guided Prostate Biopsy - Ephraim Carvajal MD Date/Time: 12/08/23 07:59 Surgeon: Ephraim Carvajal MD Pre Op Diagnosis: elevated PSA Patient Data Age: 63 Gender: M Height: 1.75 m Weight: 95.25 kg Last Vital Signs O2 Del Method Room Air 12/02/23 15:05 Allergies Allergy/AdvReac Type Severity Reaction Status Date / Time metformin AdvReac Intermediate Diarrhea Verified 12/07/23 12:37 Home Medications Medication Instructions Recorded Confirmed Type sildenafil 100 mg tablet 100 mg PO DAILY PRN sexual 08/11/22 12/02/23 Rx activity #6 tabs pioglitazone 30 mg tablet 30 mg PO DAILY #90 tabs 01/22/23 12/02/23 Rx atorvastatin 40 mg tablet 40 mg PO HS #90 tabs 08/17/23 12/02/23 Rx amlodipine 5 mg tablet See Rx Instructions .Route 11/19/23 12/02/23 Rx .COMPLEX #90 tabs glimepiride 2 mg tablet See Rx Instructions .Route 11/19/23 12/02/23 Rx .COMPLEX #90 tabs ipratropium bromide 42 mcg (0.06 2 spray intranasal TID PRN Allergy 12/02/23 12/02/23 History %) nasal spray Symptoms multivit with minerals-iron 18 1 tablet PO DAILY 12/02/23 12/02/23 History mg-folic ac 400 mcg-vit K 25 mcg tablet (Adults Multivitamin) Laboratory Tests 12/08/23 07:32 POC Capillary Glucose 174 H mg/dl (65-105) Patient hx anesthesia problems: none Family hx anesthesia problems: none Results Review: All pre-operative results and documents have been reviewed as part of the pre-operative evaluation. [facility] Past Medical History Medical History COVID-19 Diverticulitis (09/2020) Enlarged prostate HTN (hypertension), malignant Incarcerated ventral hernia Left inguinal hernia PSA elevation Surgical History Surgical History H/O parathyroidectomy History of flexible sigmoidoscopy flexible sigmoidoscopy for constipation, reportedly normal Hx of inguinal hernia repair LAP LIH repair w mesh, Da Gene assisted, Open incisional ventral hernia repair w mesh on 03/19/22. Family History Family History Father Diabetes mellitus Mother Cancer Other Family history of arthritis Family history of hepatitis Family history of liver disease Family history of primary malignant neoplasm of liver Social History Social History Social History: The patient was with his who is a durable power trial attorney for healthcare. The patient has 3 step children. He has no biological children of his own. The patient works for the [employer]. The patient is a full code. Patient's lifelong nonsmoker. Does not use any marijuana illicit drugs or alcohol Smoking status: Never smoker Alcohol intake: never Substance use: never Substance use type: does not use Living arrangements: with family Occupation/Education: occupation Additional occupation/education comments: [employer] Gender identity (if verbalized by the patient): Male Spiritual care concerns: No Anes - Eval Final PreProcedure Day of Procedure 12/08/23 07:59 Patient weight: obese Heart: regular rate and rhythm Lungs: clear to auscultation Airway: Mallampati scale Neurological: alert and oriented Last oral intake: >/= 8 hours ASA classification: III Emergent: no Anesthetic plan: proceed Anesthesia type and monitoring: general GIVS and standard monitoring Results Review: All pre-operative results and documents have been reviewed as part of the pre-operative evaluation. HTN, hyperlipidemia, DM (fsbs 174). Pt can walk 1-2 fos, no cp or sob, limited by hip/orthopedic pain. Informed Consent: The patient's anesthetic plan and its attend
[2023-12-08] MEDS: ceFAZolin 2 GM/D5W 50 ML 2 GM/50 ML BAG IVPB (08:19)
--- NOTE | 2023-12-08 08:42 | W.PM.PROC2 ---
Procedure Note - Detailed Date of Procedure 12/08/23 Pre-op Diagnosis elevated PSA Post-op Diagnosis Same Procedure Performed uronav us and prostate biopsy Surgeon Ephraim Carvajal MD Anesthesia MAC Description of Procedure Patient is taken the operative suite correctly identified. He was placed in lateral decubitus position and anesthesia was given. Transrectal ultrasound probe was inserted in the MRI image was fused to the ultrasound image. There were 2 regions of interest. Three cores were taken from each region of interest. A standard 12 core biopsy was then performed. Patient tolerated procedure well without complications and was taken recovery stable condition. He will call for path results in 1 week. This completes dictation. Please send a copy of the op note to office. Estimated Blood Loss 0 Drains No Packing No Pathology Yes Complications No immediate complications Condition Stable Disposition PACU
[2023-12-08 08:48] VITALS: BP 119/61; PULSE 91; RESP 14; O2SAT 97
[2023-12-08 08:54] LABS: Glucose Point of Care 174 mg/dl (65-105)
[2023-12-08 09:20] VITALS: BP 132/81; PULSE 84; RESP 14
[2023-12-08 09:35] VITALS: BP 131/87; PULSE 81; RESP 14
== END 2023-12-08 09:47 | disposition home or self-care (01) ==
PROVIDERS: PCP Family Medicine Adolescent Medicine; Visit Provider Urology
PROC: (CPT 55700; principal; 2023-12-08 08:15)
DX: R97.20 Elevated prostate specific antigen [PSA] (principal); I10 Essential (primary) hypertension; E11.65 Type 2 diabetes mellitus with hyperglycemia; E78.5 Hyperlipidemia, unspecified; E66.9 Obesity, unspecified; Z68.31 Body mass index [BMI] 31.0-31.9, adult; Z98.890 Other specified postprocedural states; Z79.84 Long term (current) use of oral hypoglycemic drugs; Z80.0 Family history of malignant neoplasm of digestive organs
CPT/HCPCS: 76872; 55700; 82948; G0416; J0690; J2250; J2704; J7120